=== PATIENT | female | born 1960 | race Caucasian/White ===

== ENCOUNTER 2021-10-04 11:48 | Inpatient (IN) ==
[2021-10-04] MEDS ORDERED: MoRPHine SULFATE 4 MG/ML 1 ML CARP\\VIAL IV STA ×2 (12:30→14:42)
[2021-10-04] MEDS ORDERED: SODIUM CHLORIDE 0.9% 1000ML 1,000 ML IV SCH (12:30)
[2021-10-04] MEDS ORDERED: ONDANSETRON INJ 2 MG/ML 2 ML VIAL IV STA (12:30)
--- NOTE | 2021-10-04 12:33 | Emergency Department Note ---
Impression & Plan Abscess of wrist Admission ED Provider Note HPI: The patient is a 61-year-old female with history of lupus, discitis, presents the emergency department with a chief complaint of right hand swelling and pain has been ongoing for the past 5 days. Patient states that she is not had any recent injuries, denies any recent bites, states that over the weekend she began developing some swelling and erythema on the dorsal aspect of her right hand. She was placed on prednisone at an outpatient urgent care facility, on Friday she saw her PCP and was placed on Keflex. Swelling and pain has continued to worsen over the past several days, patient has limited range of motion of the digits of her right hand on arrival and significant swelling on the dorsal aspect of the right hand with overlying erythema extending up to the elbow of the right forearm. ROS: -MSK: Right hand abscess swelling/pain *10 point review systems was conducted and is otherwise negative unless stated above *Outpatient medications and allergy history reviewed PE: General: Alert, NAD HEENT: Normocephalic, atraumatic Eyes: Extraocular eye movement is intact, no scleral erythema Pulmonary: Clear to auscultation bilaterally, no wheezing Cardio: Regular rate and rhythm GI: Abdomen is soft, nontender : No suprapubic tenderness MSK: There is edema, erythema, and swelling to the dorsal aspect of the right hand extending up the right forearm, there is no purulent drainage, there is li mited range of motion of the digits of the right hand in flexion and extension secondary to pain/swelling Skin: Skin changes to the right hand as above Neuro: Alert, no focal deficits Psychiatric: Cooperative equipment monitor phototypesetting: - An order was placed for continuous cardiac monitoring - Patient was noted to be in sinus rhythm with rate of 70 EKG: Rate: 72 Rhythm: Normal sinus rhythm Intervals: Within normal limits ST changes: No ST elevation Time: 1343 Medical Decision Making: Patient presented to the emergency department with some increasing swelling and pain in the dorsal aspect of her right hand, this does appear to be fairly significant on exam, patient does not maintain flexion or extension much with the digits of her right hand, she states this has been worsening despite being on Keflex over the past several days. She denies any IV drug use, she is immunocompromised and is her currently on hydroxychloroquine for lupus. Shortly after arrival patient was placed on compliance monitor, IV was established, lab work obtained, patient has a significant leukocytosis of approximately 26,000, blood cultures were drawn in the ED, CT imaging of the right upper extremity does confirm evidence of cellulitic changes as well as loculated fluid collection on the dorsal aspect of the right hand and wrist consistent with abscess. I discussed these findings with the on-call midlevel provider for the orthopedic service, Eladio, they are in agreement for consultation for operative intervention Patient will be admitted to the medicine service given her ongoing medical issues and history of lupus. Patient was started on broad-spectrum antibiotics with vancomycin and Zosyn. She was given multiple doses of IV morphine for pain. On my reassessment the patient has had some improvement in her pain with IV morphine, she is in agreement for admission, case was discussed with the hospitalist service for [facility] provider group and the patient was admitted in stable condition. Diagnosis: 1. Right hand abscess/cellulitis 2. Right upper extremity pain, acute 3. History of lupus, immunocompromised status 4. Leukocytosis 5. Elevated ESR Disposition: Admission Pancho Rinaldi DO Emergency Medicine Past Med/Surg History Medical History (Updated 10/04/21 @ 16:21 by Leonila Puri PA-C) Breast cancer HTN (hypertension) Lupus Social History Smoking Status: Never smoker Second Hand Exposure: No; Hx Alcohol Use: Yes Alcohol type: beer and wine Hx Substance Use: No Preferred Language: Irish Communication Ability: Effective Visual Impairment: No Limitations Financial Service Representative Required: No Beliefs That Will Affect Care: None marital status: Current Living Situation: Family Feels Safe at Home: Yes Assistive Devices: Walker Allergies Allergies Allergy/AdvReac Type Severity Reaction Status Date / Time No Known Allergies Allergy Unknown Verified 10/04/21 14:48 Home Meds Home Medications Medication Instructions Recorded Confirmed Lactobacillus acidophilus 1 cap PO QAM 07/30/18 10/04/21 (Acidophilus) ascorbic acid (vitamin C) 1,000 mg 3,000 mg PO QAM 07/30/18 10/04/21 tablet,extended release (Vitamin C ER) aspirin 81 mg tablet,delayed 81 mg PO QAM 07/30/18 10/04/21 release (Aspirin Low Dose) betamethasone, augmented 0.05 % 1 applic TOPICAL BID PRN 07/30/18 10/04/21 topical gel calcium carbonate 600 mg-vitamin 2 tab PO QAM 07/30/18 10/04/21 D3 20 mcg (800 unit) chewable tablet (Caltrate 600 plus D) cholecalciferol (vitamin D3) 25 2,000 unit PO QAM 07/30/18 10/04/21 mcg (1,000 unit) capsule (Vitamin D3) echinacea 380 mg capsule 2 cap PO QAM 07/30/18 10/04/21 flaxseed oil 1,000 mg capsule 1,000 mg PO BID 07/30/18 10/04/21 hydroxychloroquine 200 mg tablet 200 mg PO BID 07/30/18 10/04/21 montelukast 10 mg tablet 10 mg PO HS 07/30/18 10/04/21 multivitamin 1 tab PO QAM 07/30/18 10/04/21 omega 3-mfw-eof-fish oil 1,000 mg 2 cap PO QAM 07/30/18 10/04/21 (120 mg-180 mg) capsule (Fish Oil) pimecrolimus 1 % topical cream 1 applic TOPICAL DIRECTED 07/30/18 10/04/21 allopurinol 100 mg tablet 100 mg PO QAM 10/04/21 10/04/21 amlodipine 5 mg tablet 5 mg PO QAM 10/04/21 10/04/21 cephalexin 500 mg capsule 500 mg PO TID 10/04/21 10/04/21 escitalopram oxalate 20 mg tablet 20 mg PO HS 10/04/21 10/04/21 famotidine 20 mg tablet 20 mg PO DAILYBB 10/04/21 10/04/21 hydrocodone 5 mg-acetaminophen 325 1 tab PO Q4H PRN 10/04/21 10/04/21 mg tablet loratadine 10 mg tablet 10 mg PO QAM 10/04/21 10/04/21 montelukast 10 mg tablet 40 mg PO HS 10/04/21 10/04/21 prednisone 10 mg tablet 10 mg PO .TAPER DOSE 10/04/21 10/04/21 prednisone 10 mg tablet 10 mg PO .TAPER DOSE 10/04/21 10/04/21 vitamin B complex 1 tab PO QAM 10/04/21 10/04/21 Results & Data (ED) Vital Signs Vital Signs - 24 hr 10/04/21 11:52 10/04/21 13:29 10/04/21 14:30 Temperature 37.3 C Temperature Source Oral Pulse Rate 73 Pulse Rate [Apical] 74 Pulse Rhythm Regular Pulse Strength Normal Respiratory Rate 20 18 Respiratory Effort / Characteristics Non-Labored Spontaneous Respiratory Depth Normal Normal Respiratory Pattern Regular Blood Pressure 165/77 H Blood Pressure [Right Calf] 196/72 H Blood Pressure Mean 106 Blood Pressure Mean [Right Calf] 113 Blood Pressure Position Sitting Pulse Oximetry 98 94 Oxygen Delivery Method Room Air Room Air Room Air Sepsis Recent Fever Within 48 Hours No Sepsis New/Unexplained Change in Mental Status No Sepsis Action Taken by Nursing No Action Required Laboratory Data Result diagrams: 10/04/21 12:58 10/04/21 12:58 Lab Results 10/04/21 10/04/21 10/04/21 Range/Units 12:58 12:58 12:58 WBC 24.88 H (4.8-10.8) K/uL RBC 4.29 (4.2-5.4) M/uL Hgb 13.3 (12.0-16.0) g/dL Hct 37.7 (37-47) % MCV 87.9 (80-100) fL MCH 31.0 (25-34) pg MCHC 35.3 (32-36) g/dL RDW Std Deviation 48.8 H (36.4-46.3) fL RDW Coeff of Hipolito 15.2 H (11.5-14.5) % Plt Count 355 (130-400) K/uL MPV 9.8 (7.4-10.4) fL Neutrophils % (Manual) 69.6 % Lymphocytes % (Manual) 19.1 % Monocytes % (Manual) 8.7 % Metamyelocytes % (Man) 0.9 % Myelocytes % (Man) 1.7 % Neutrophils # (Manual) 17.32 H (1.4-6.5) K/uL Total Absolute Neuts 17.32 H (1.4-6.5) K/uL Lymphocytes # (Manual) 4.75 H (1.2-3.4) K/uL Total Abs Lymphocytes 4.75 H (1.2-3.4) K/uL Monocytes # (Manual) 2.16 H (0.11-0.59) K/uL Metamyelocytes # (Man) 0.22 H (0-0) K/uL Myelocytes # (Manual) 0.42 H (0-0) K/uL ESR (0-30) mm/hr PT 10.2 (9.0-12.0) Seconds INR 1.0 (0.9-1.1) APTT 27.0 (21.0-31.0) Seconds PTT Ratio 1.0 Sodium 139 (136-145) mmol/L Potassium 3.4 L (3.5-5.1) mmol/L Chloride 102 (98-107) mmol/L Carbon Dioxide 28 (21-32) mmol/L Anion Gap 9 (3-11) BUN 17 (6-23) mg/dl Creatinine 0.78 (0.6-1.2) mg/dl Est Cr Clr Drug Dosing 78.5 ml/min Est GFR ( Amer) 94.4 ml/min Est GFR (Non-Af Amer) 81.5 ml/min BUN/Creatinine Ratio 21.8 H (10-20) Glucose 143 H (70-99(Fasting)) mg/dl Lactate (0.4-2.0) mmol/L Calcium 9.6 (8.5-10.1) mg/dl Magnesium 2.1 (1.7-2.4) mg/dl Total Bilirubin 0.4 (0.2-1.0) mg/dl AST 36 (13-39) U/L ALT 55 H (7-52) U/L Alkaline Phosphatase 101 (34-104) U/L C-Reactive Protein 15.89 H (0-0.5) mg/dl Total Protein 7.6 (6.0-8.3) gm/dl Albumin 3.7 (3.4-5.0) gm/dl Globulin 3.9 (2.5-4.0) gm/dl Albumin/Globulin Ratio 0.9 (0.9-2) Procalcitonin (0-0.5) ng/ml Urine Color Urine Appearance (Clear) Urine pH (4.5-7.5) Ur Specific Garland (1.000-1.030) Urine Protein (Negative) Urine Glucose (UA) (Negative) Urine Ketones (Negative) Urine Blood (Negative) Urine Nitrite (Negative) Urine Bilirubin (Negative) Urine Urobilinogen (Negative) Ur Leukocyte Esterase (Negative) Urine WBC (Auto) (0-5) /hpf Urine RBC (Auto) (0-4) /hpf U Hyaline Cast (Auto) (0-5) /lpf U Epithel Cells (Auto) (0-5) /lpf Urine Bacteria (Auto) (Negative) SARS-CoV-2, RNA, NAAT (NEGATIVE) 10/04/21 10/04/21 10/04/21 Range/Units 12:58 12:58 12:58 WBC (4.8-10.8) K/uL RBC (4.2-5.4) M/uL Hgb (12.0-16.0) g/dL Hct (37-47) % MCV (80-100) fL MCH (25-34) pg MCHC (32-36) g/dL RDW Std Deviation (36.4-46.3) fL RDW Coeff of Hipolito (11.5-14.5) % Plt Count (130-400) K/uL MPV (7.4-10.4) fL Neutrophils % (Manual) % Lymphocytes % (Manual) % Monocytes % (Manual) % Metamyelocytes % (Man) % Myelocytes % (Man) % Neutrophils # (Manual) (1.4-6.5) K/uL Total Absolute Neuts (1.4-6.5) K/uL Lymphocytes # (Manual) (1.2-3.4) K/uL Total Abs Lymphocytes (1.2-3.4) K/uL Monocytes # (Manual) (0.11-0.59) K/uL Metamyelocytes # (Man) (0-0) K/uL Myelocytes # (Manual) (0-0) K/uL ESR 111 H (0-30) mm/hr PT (9.0-12.0) Seconds INR (0.9-1.1) APTT (21.0-31.0) Seconds PTT Ratio Sodium (136-145) mmol/L Potassium (3.5-5.1) mmol/L Chloride (98-107) mmol/L Carbon Dioxide (21-32) mmol/L Anion Gap (3-11) BUN (6-23) mg/dl Creatinine (0.6-1.2) mg/dl Est Cr Clr Drug Dosing ml/min Est GFR ( Amer) ml/min Est GFR (Non-Af Amer) ml/min BUN/Creatinine Ratio (10-20) Glucose (70-99(Fasting)) mg/dl Lactate 1.7 (0.4-2.0) mmol/L Calcium (8.5-10.1) mg/dl Magnesium (1.7-2.4) mg/dl Total Bilirubin (0.2-1.0) mg/dl AST (13-39) U/L ALT (7-52) U/L Alkaline Phosphatase (34-104) U/L C-Reactive Protein (0-0.5) mg/dl Total Protein (6.0-8.3) gm/dl Albumin (3.4-5.0) gm/dl Globulin (2.5-4.0) gm/dl Albumin/Globulin Ratio (0.9-2) Procalcitonin 0.87 H (0-0.5) ng/ml Urine Color Urine Appearance (Clear) Urine pH (4.5-7.5) Ur Specific Gar[place] (1.000-1.030) Urine Protein (Negative) Urine Glucose (UA) (Negative) Urine Ketones (Negative) Urine Blood (Negative) Urine Nitrite (Negative) Urine Bilirubin (Negative) Urine Urobilinogen (Negative) Ur Leukocyte Esterase (Negative) Urine WBC (Auto) (0-5) /hpf Urine RBC (Auto) (0-4) /hpf U Hyaline Cast (Auto) (0-5) /lpf U Epithel Cells (Auto) (0-5) /lpf Urine Bacteria (Auto) (Negative) SARS-CoV-2, RNA, NAAT (NEGATIVE) 10/04/21 10/04/21 Range/Units 15:33 15:33 WBC (4.8-10.8) K/uL RBC (4.2-5.4) M/uL Hgb (12.0-16.0) g/dL Hct (37-47) % MCV (80-100) fL MCH (25-34) pg MCHC (32-36) g/dL RDW Std Deviation (36.4-46.3) fL RDW Coeff of Hipolito (11.5-14.5) % Plt Count (130-400) K/uL MPV (7.4-10.4) fL Neutrophils % (Manual) % Lymphocytes % (Manual) % Monocytes % (Manual) % Metamyelocytes % (Man) % Myelocytes % (Man) % Neutrophils # (Manual) (1.4-6.5) K/uL Total Absolute Neuts (1.4-6.5) K/uL Lymphocytes # (Manual) (1.2-3.4) K/uL Total Abs Lymphocytes (1.2-3.4) K/uL Monocytes # (Manual) (0.11-0.59) K/uL Metamyelocytes # (Man) (0-0) K/uL Myelocytes # (Manual) (0-0) K/uL ESR (0-30) mm/hr PT (9.0-12.0) Seconds INR (0.9-1.1) APTT (21.0-31.0) Seconds PTT Ratio Sodium (136-145) mmol/L Potassium (3.5-5.1) mmol/L Chloride (98-107) mmol/L Carbon Dioxide (21-32) mmol/L Anion Gap (3-11) BUN (6-23) mg/dl Creatinine (0.6-1.2) mg/dl Est Cr Clr Drug Dosing ml/min Est GFR ( Amer) ml/min Est GFR (Non-Af Amer) ml/min BUN/Creatinine Ratio (10-20) Glucose (70-99(Fasting)) mg/dl Lactate (0.4-2.0) mmol/L Calcium (8.5-10.1) mg/dl Magnesium (1.7-2.4) mg/dl Total Bilirubin (0.2-1.0) mg/dl AST (13-39) U/L ALT (7-52) U/L Alkaline Phosphatase (34-104) U/L C-Reactive Protein (0-0.5) mg/dl Total Protein (6.0-8.3) gm/dl Albumin (3.4-5.0) gm/dl Globulin (2.5-4.0) gm/dl Albumin/Globulin Ratio (0.9-2) Procalcitonin (0-0.5) ng/ml Urine Color Yellow Urine Appearance Clear (Clear) Urine pH 6.0 (4.5-7.5) Ur Specific Garland 1.028 (1.000-1.030) Urine Protein Negative (Negative) Urine Glucose (UA) Negative (Negative) Urine Ketones Negative (Negative) Urine Blood 1+ H (Negative) Urine Nitrite Negative (Negative) Urine Bilirubin Negative (Negative) Urine Urobilinogen Negative (Negative) Ur Leukocyte Esterase 1+ H (Negative) Urine WBC (Auto) 5-10 H (0-5) /hpf Urine RBC (Auto) 5-10 H (0-4) /hpf U Hyaline Cast (Auto) 0 (0-5) /lpf U Epithel Cells (Auto) 5-10 H (0-5) /lpf Urine Bacteria (Auto) Negative (Negative) SARS-CoV-2, RNA, NAAT NEGATIVE (NEGATIVE) Administered Medications Potassium Chloride (K Tyrell / Wtr) 10 meq in 100 mls @ 100 mls/hr IV Q1H STA; Protocol Stop: 10/04/21 17:10 Last Admin: 10/04/21 16:15 Dose: 100 mls/hr Documented by: [id number] Discontinued Medications Sodium Chloride (Nss 1000ml) 1,000 mls @ 999 mls/hr IV .Q1H1M MARLEN Stop: 10/04/21 13:30 Last Infusion: 10/04/21 14:53 Dose: 0 mls/hr Documented by: [id number] Admin: 10/04/21 13:03 Dose: 999 mls/hr Documented by: [id number] Vancomycin HCl 1,750 mg/ (Sodium Chloride) 535 mls @ 200 mls/hr IV NOW ONE Stop: 10/04/21 15:52 Last Admin: 10/04/21 13:47 Dose: 200 mls/hr Documented by: [id number] Piperacillin Sod/Tazobactam Sod (Zosyn) 4.5 gm in 120 mls @ 240 mls/hr IV NOW ONE Stop: 10/04/21 13:41 Last Infusion: 10/04/21 14:53 Dose: 0 mls/hr Documented by: [id number] Admin: 10/04/21 13:47 Dose: 240 mls/hr Documented by: [id number] Ioversol (Optiray 320 100ml) 94 ml IV ONCE ONE Stop: 10/04/21 14:22 Last Admin: 10/04/21 14:21 Dose: 94 ml Documented by: [id number] Morphine Sulfate (Morphine Sulfate 4 Mg/Ml 1 Ml Carp\Vial) 4 mg IV NOW STA Stop: 10/04/21 12:31 Last Admin: 10/04/21 13:05 Dose: 4 mg Documented by: [id number] Morphine Sulfate (Morphine Sulfate 4 Mg/Ml 1 Ml Carp\Vial) 4 mg IV NOW STA Stop: 10/04/21 14:43 Last Admin: 10/04/21 14:52 Dose: 4 mg Documented by: [id number] Ondansetron HCl (Ondansetron Inj 2 Mg/Ml 2 Ml Vial) 4 mg IV NOW STA Stop: 10/04/21 12:31 Last Admin: 10/04/21 13:04 Dose: 4 mg Documented by: [id number] Imaging Data Radiologist's Impression: Chest X-Ray 10/04/21 12:29 XR chest 1V portable HISTORY: 61 years-old Female SEPSIS acute sepsis COMPARISON: Chest radiograph 07/30/2018 TECHNIQUE: Portable AP view of the chest FINDINGS: Cardiac silhouette is enlarged. Pulmonary vascular congestion with mild interstitial coarsening. No pneumothorax, pleural effusion or lobar airspace consolidation. Degenerative changes of the shoulders and spine. Minimal rotator cuff calcific tendinosis of the right shoulder. Mild mid thoracic dextroscoliosis. IMPRESSION: Cardiomegaly with suggestion of pulmonary vascular congestion. ACT 112: Negative or not required by law. The above report was generated using voice recognition software. It may contain grammatical, syntax or spelling errors. Electronically signed by: Khris Knowles M.D. 10/04/2021 12:[address] 10/04/21 12:29 CT SCAN OF THE RIGHT FOREARM WITHOUT IV CONTRAST; CT SCAN OF THE RIGHT HAND WITH IV CONTRAST CLINICAL HISTORY: Arm and hand pain. Clinical concern for abscess. COMPARISON STUDY: No priors. TECHNIQUE: CT scan of the right forearm and CT scan of the right hand are performed following the IV administration of 94 cc of Optiray 320. Images for both examinations are reviewed in the axial, sagittal, and coronal planes. A dose lowering technique was utilized adhering to the principles of ALARA. The examinations are degraded by patient positioning. Interpretation is suboptimal without plain film correlate. CT DOSE: 415.84 mGycm FINDINGS: The skeletal structures are osteopenic. There is no evidence of fracture identified in the right forearm, wrist, or hand. No bony erosion or periostitis is identified. Significant soft tissue edema is identified throughout the forearm, greatest in the ulnar sided soft tissues. No organized fluid collection is seen throughout the forearm. Extensive soft tissue edema and subcutaneous fluid is seen throughout the hand, greatest dorsally. There is a multiloculated and peripherally enhancing fluid collection identified along the dorsal aspect of the wrist and hand. A small fluid collection at the level of the proximal carpal row seen on axial images #164 and #181 measures approximately 2.5 x 3 x 1 cm. No soft tissue gas identified. The regional vessels are grossly patent. IMPRESSION: 1. No acute bony abnormality is identified involving the right forearm, wrist, or hand. 2. There is evidence of cellulitis of the ulnar sided soft tissues of the forearm. 3. More severe cellulitis is seen throughout the hand, greatest dorsally with si gnificant soft tissue edema and fluid. 4. There is a multiloculated and peripherally enhancing fluid collection along the dorsal aspect of the wrist and hand as detailed above. This likely represents abscess as clinically suspected. 5. No soft tissue gas is identified. ACT 112: Negative or not required by law. Dictated: 10/04/2021 2:32 PM Transcribed: 10/04/2021 2:53 PM Denise [id number] [email or web address] Electronically signed by: Umesh Kee M.D. 10/04/2021 3:[address] 10/04/21 12:29 CT SCAN OF THE RIGHT FOREARM WITHOUT IV CONTRAST; CT SCAN OF THE RIGHT HAND WITH IV CONTRAST CLINICAL HISTORY: Arm and hand pain. Clinical concern for abscess. COMPARISON STUDY: No priors. TECHNIQUE: CT scan of the right forearm and CT scan of the right hand are performed following the IV administration of 94 cc of Optiray 320. Images for both examinations are reviewed in the axial, sagittal, and coronal planes. A dose lowering technique was utilized adhering to the principles of ALARA. The examinations are degraded by patient positioning. Interpretation is suboptimal without plain film correlate. CT DOSE: 415.84 mGycm FINDINGS: The skeletal structures are osteopenic. There is no evidence of fracture identified in the right forearm, wrist, or hand. No bony erosion or periostitis is identified. Significant soft tissue edema is identified throughout the forearm, greatest in the ulnar sided soft tissues. No organized fluid collection is seen throughout the forearm. Extensive soft tissue edema and subcutaneous fluid is seen throughout the hand, greatest dorsally. There is a multiloculated and peripherally enhancing fluid collection identified along the dorsal aspect of the wrist and hand. A small fluid collection at the level of the proximal carpal row seen on axial images #164 and #181 measures approximately 2.5 x 3 x 1 cm. No soft tissue gas identified. The regional vessels are grossly patent. IMPRESSION: 1. No acute bony abnormality is identified involving the right forearm, wrist, or hand. 2. There is evidence of cellulitis of the ulnar sided soft tissues of the forearm. 3. More severe cellulitis is seen throughout the hand, greatest dorsally with significant soft tissue edema and fluid. 4. There is a multiloculated and peripherally enhancing fluid collection along the dorsal aspect of the wrist and hand as detailed above. This likely represents abscess as clinically suspected. 5. No soft tissue gas is identified. ACT 112: Negative or not required by law. Dictated: 10/04/2021 2:32 PM Transcribed: 10/04/2021 2:53 PM Denise [id number] [email or web address] Electronically signed by: Umesh Kee M.D. 10/04/2021 3:05 PM Discharge Plan Visit Data Chief Complaint: Swelling/Edema to Extremity Stated Complaint: SWELLING IN RIGHT HAND AND ARM ED Provider: Pancho Rinaldi Discharge Problem: Abscess of wrist Forms Stand Alone Forms: [facility] Prescriptions Prescriptions: No Action multivitamin Tablet 1 tab PO QAM RF: 0 echinacea 380 mg Capsule 2 cap PO QAM RF: 0 Vitamin C 1,000 mg Tablet Extended Release 3,000 mg PO QAM RF: 0 pimecrolimus 1 % cream 1 applic topical DIRECTED RF: 0 aspirin [Aspirin Low Dose] 81 mg Tablet,Delayed Release (Dr/Ec) 81 mg PO QAM RF: 0 flaxseed oil 1,000 mg Capsule 1,000 mg PO BID RF: 0 betamethasone, augmented 0.05 % gel 1 applic topical BID PRN (Reason: lupus) RF: 0 montelukast 10 mg tablet 10 mg PO HS RF: 0 hydroxychloroquine 200 mg tablet 200 mg PO BID RF: 0 Acidophilus Capsule 1 cap PO QAM RF: 0 cholecalciferol (vitamin D3) [Vitamin D3] 1,000 unit Capsule 2,000 unit PO QAM RF: 0 omega 6-wkf-fah-fish oil [Fish Oil] 1,000 mg (120 mg-180 mg) Capsule 2 cap PO QAM RF: 0 Caltrate 600 plus D 600 mg (1,500 mg)-800 unit Tablet,Chewable 2 tab PO QAM RF: 0 prednisone 10 mg tablet 10 mg PO .TAPER DOSE RF: 0 prednisone 10 mg tablet 10 mg PO .TAPER DOSE RF: 0 hydrocodone-acetaminophen 5-325 mg tablet 1 tab PO Q4H PRN (Reason: Pain) RF: 0 amlodipine 5 mg tablet 5 mg PO QAM RF: 0 allopurinol 100 mg tablet 100 mg PO QAM RF: 0 famotidine 20 mg tablet 20 mg PO DAILYBB RF: 0 cephalexin 500 mg capsule 500 mg PO TID RF: 0 vitamin B complex Tablet 1 tab PO QAM RF: 0 montelukast 10 mg tablet 40 mg PO HS RF: 0 loratadine 10 mg Tablet 10 mg PO QAM RF: 0 escitalopram oxalate 20 mg tablet 20 mg PO HS RF: 0 Referrals Referrals: Kelin Stark MD [Non-Staff] -
--- NOTE | 2021-10-04 12:49 | XRay Report ---
XR chest 1V portable HISTORY: 61 years-old Female SEPSIS acute sepsis COMPARISON: Chest radiograph 07/30/2018 TECHNIQUE: Portable AP view of the chest FINDINGS: Cardiac silhouette is enlarged. Pulmonary vascular congestion with mild interstitial coarsening. No p neumothorax, pleural effusion or lobar airspace consolidation. Degenerative changes of the shoulders and spine. Minimal rotator cuff calcific tendinosis of the right shoulder. Mild mid thoracic dextrosc oliosis. IMPRESSION: Cardiomegaly with suggestion of pulmonary vascular congestion. ACT 112: Negative or not required by law. The above report was generated using voice recognition software. It may contain grammatical, syntax o r spelling errors. Electronically signed by: Khris Knowles M.D. 10/04/2021 12:48 PM
[2021-10-04 13:11] LABS: Hematocrit (blood only) 37.7 % (37-47); Hemoglobin 13.3 g/dL (12.0-16.0); Mean Corpuscular Hgb Conc 35.3 g/dL (32-36); Mean Corpuscular Volume 87.9 fL (80-100); Mean Platelet Volume 9.8 fL (7.4-10.4); Platelet Count 355 K/uL (130-400); RDW Coefficient of Variation 15.2 % (11.5-14.5); RDW Standard Deviation 48.8 fL (36.4-46.3); Red Blood Count 4.29 M/uL (4.2-5.4); White Blood Count 24.88 K/uL (4.8-10.8)
[2021-10-04] MEDS ORDERED: VANCOMYCIN CONSULT ACTIVE PRN ×2 (13:12→17:14)
[2021-10-04] MEDS ORDERED: VANCOMYCIN HCL 1,750 MG in SODIUM CHLORIDE 0.9% 500 ML IV ONE (13:12)
[2021-10-04] MEDS ORDERED: PIPERACILL/TAZOBAC CONSULT ACTIVE PRN ×2 (13:12→17:14)
[2021-10-04] MEDS ORDERED: PIPERACILLIN/TAZOBACTAM 4.5 GM/120 ML BAG IV ONE (13:12)
[2021-10-04 13:24] LABS: Prothrombin Time 10.2 Seconds (9.0-12.0)
[2021-10-04 13:27] LABS: ALC (manual) 4.75 K/uL (1.2-3.4); ANC (manual) 17.32 K/uL (1.4-6.5); Lymphocytes # (manual) 4.75 K/uL (1.2-3.4); Lymphocytes % (manual) 19.1 %; Metamyelocytes # (manual) 0.22 K/uL (0-0); Metamyelocytes % (manual) 0.9 %; Monocytes # (manual) 2.16 K/uL (0.11-0.59); Monocytes % (manual) 8.7 %; Myelocytes # (manual) 0.42 K/uL (0-0); Myelocytes % (manual) 1.7 %; Neutrophils # (manual) 17.32 K/uL (1.4-6.5); Neutrophils % (manual) 69.6 %
[2021-10-04 13:41] LABS: Albumin Globulin Ratio 0.9 (0.9-2); Albumin Level 3.7 gm/dl (3.4-5.0); BUN Creatinine Ratio 21.8 (10-20); Bilirubin,Total 0.4 mg/dl (0.2-1.0); C Reactive Protein 15.89 mg/dl (0-0.5); Calcium 9.6 mg/dl (8.5-10.1); Creatinine Clr Calc Pharmacy 78.5 ml/min; Est GFR (African American) 94.4 ml/min; Est GFR (Non-African American) 81.5 ml/min; Globulin 3.9 gm/dl (2.5-4.0); Magnesium 2.1 mg/dl (1.7-2.4); Potassium 3.4 mmol/L (3.5-5.1); Total Protein 7.6 gm/dl (6.0-8.3)
[2021-10-04] MEDS ORDERED: OPTIRAY 320 100ml IV ONE (14:21)
--- NOTE | 2021-10-04 15:07 | CT Scan Report ---
CT SCAN OF THE RIGHT FOREARM WITHOUT IV CONTRAST; CT SCAN OF THE RIGHT HAND WITH IV CONTRAST CLINICAL HISTORY: Arm and hand pain. Clinical concern for abscess. COMPARISON STUDY: No priors. TECHNIQUE: CT scan of the right forearm and CT scan of the right hand are performed following the IV administration of 94 cc of Optiray 320. Images for both examinations are reviewed in the axial, sagit gabriel, and coronal planes. A dose lowering technique was utilized adhering to the principles of ALARA. The examinations are degraded by patient positioning. Interpretation is suboptimal without plain film correlate. CT DOSE: 415.84 mGycm FINDINGS: The skeletal structures are osteopenic. There is no evidence of fracture identified in the right forearm, wrist, or hand. No bony erosion or periostitis is identified. Significant soft tissue edema is identified throughout the forearm, greatest in the ulnar sided soft tissues. No organized fl uid collection is seen throughout the forearm. Extensive soft tissue edema and subcutaneous fluid is seen throughout the hand, greatest dorsally. There is a multiloculated and peripherally enhancing flu id collection identified along the dorsal aspect of the wrist and hand. A small fluid collection at t he level of the proximal carpal row seen on axial images #164 and #181 measures approximately 2.5 x 3 x 1 cm. No soft tissue gas identified. The regional vessels are grossly patent. IMPRESSION: 1. No acute bony abnormality is identified involving the right forearm, wrist, or hand. 2. There is evidence of cellulitis of the ulnar sided soft tissues of the forearm. 3. More severe cellulitis is seen throughout the hand, greatest dorsally with significant soft tissue edema and fluid. 4. There is a multiloculated and peripherally enhancing fluid collection along the dorsal aspect of t he wrist and hand as detailed above. This likely represents abscess as clinically suspected. 5. No soft tissue gas is identified. ACT 112: Negative or not required by law. Dictated: 10/04/2021 2:32 PM Transcribed: 10/04/2021 2:53 PM Denise [id number] [email or web address]_Dana Electronically signed by: Umesh Kee M.D. 10/04/2021 3:05 PM
--- NOTE | 2021-10-04 15:35 | History & Physical Report ---
Date of Service October 04, 2021 Assessment & Plan (1) Abscess of wrist: Plan: -With WBC 24, elevated procalcitonin, ESR, CRP. Suspect elevated white blood cell count might be combination of infection as well as steroid use. -Failed treatment as outpatient with prednisone and Keflex, d/c these. -Vanco and Zosyn for now. Blood cultures sent, pending. -Orthopedic consulted for evaluation of patient, recommending pain control, elevation and ice, reassess tomorrow patient's response to antibiotics. Appreciate their recommendations. -Heart healthy diet, n.p.o. at midnight. -IVF, prn pain medications. (2) Lupus: Plan: -Stable. -Continue hydroxychloroquine. -D/C pimecrolimus and betamethasone cream for now. (3) HTN (hypertension): Plan: -Hypertensive today in ED, 160/76. Takes amlodipine 5 mg daily, states pressure is typically well controlled. Suspect elevated BP due to pain, infection. -Continue amlodipine, continue to monitor pressure, manage pain. (4) Hyperuricemia: Plan: -On outpatient labs, patient is currently on allopurinol for prevention of gout attacks. -Do not suspect this is the cause of patient's wrist pain. -Continue allopurinol 100 mg daily. Admission and Anticipated Discharge Date Admission Date: -Obs med-sugr -SCDs, Lovenox for DVT ppx -Full Code. History of Present Illness Chief Complaint: wrist abscess Primary Care Provider: NO PCP Patient is a 61-year-old female with PMH of hypertension, lupus, GERD, and depression who presents today with worsening wrist swelling since Friday, 09/30. Patient states Friday afternoon, she noticed her wrist was becoming red and appeared swollen. She went to an outpatient urgent care center who told her this may be gout, prescribed her prednisone 50 mg daily. Despite prednisone, as well as aspirin for pain management, the swelling increased and the redness started to extend up to her elbow. She saw her PCP on Friday, who tapered the prednisone and also put her on a 3-day course of Keflex for presumed cellulitis. Again, despite this it has progressed. She is unsure how this started, denies any new recent medications, no recent injuries, no animal bites, no puncture wounds. States she does have lupus, commonly gets rashes on her arms from her lupus as well as frequently having her hands in water. She usually puts betamethasone cream on it, which she did this time without alleviation. Due to swelling, she does have difficulty with range of motion at her right wrist and fingers, she is able to move her elbow in flexion extension with some pain. She has begun to develop some numbness and tingling in her first 2 fingers on the right hand. She is otherwise without complaints, denies fever/chills, myalgias, fatigue, chest pain, palpitations, shortness of breath, cough, rash or edema elsewhere. In ED, patient is hypertensive 165/77, otherwise vital signs stable and within normal limits. No fever. Labs remarkable for WBC 24.8, CRP 15.89, ESR 111, procalcitonin 0.7. K+ 3.4, glucose 143, UA with 1+ leuk estrase, patient WBCs, 5-10 RBCs. All other labs unremarkable. Hand/forearm CT showed severe cellulitis throughout the hand, greatest dorsally with significant soft tissue edema and fluid, cellulitis of the ulnar sided soft tissues of the forearm. There is a multiloculated and peripherally enhancing fluid collection along the dorsal aspect of the wrist and hand as detailed above. This likely represents abscess as clinically suspected. Allergies Allergy/AdvReac Type Severity Reaction Status Date / Time No Known Allergies Allergy Unknown Verified 10/04/21 14:48 Home Medications Medication Instructions Recorded Confirmed Type Lactobacillus acidophilus 1 cap PO QAM 07/30/18 10/04/21 History (Acidophilus) ascorbic acid (vitamin C) 1,000 mg 3,000 mg PO QAM 07/30/18 10/04/21 History tablet,extended release (Vitamin C ER) aspirin 81 mg tablet,delayed 81 mg PO QAM 07/30/18 10/04/21 History release (Aspirin Low Dose) betamethasone, augmented 0.05 % 1 applic TOPICAL BID PRN 07/30/18 10/04/21 History topical gel calcium carbonate 600 mg-vitamin 2 tab PO QAM 07/30/18 10/04/21 History D3 20 mcg (800 unit) chewable tablet (Caltrate 600 plus D) cholecalciferol (vitamin D3) 25 2,000 unit PO QAM 07/30/18 10/04/21 History mcg (1,000 unit) capsule (Vitamin D3) echinacea 380 mg capsule 2 cap PO QAM 07/30/18 10/04/21 History flaxseed oil 1,000 mg capsule 1,000 mg PO BID 07/30/18 10/04/21 History hydroxychloroquine 200 mg tablet 200 mg PO BID 07/30/18 10/04/21 History montelukast 10 mg tablet 10 mg PO HS 07/30/18 10/04/21 History multivitamin 1 tab PO QAM 07/30/18 10/04/21 History omega 8-ats-jes-fish oil 1,000 mg 2 cap PO QAM 07/30/18 10/04/21 History (120 mg-180 mg) capsule (Fish Oil) pimecrolimus 1 % topical cream 1 applic TOPICAL DIRECTED 07/30/18 10/04/21 History allopurinol 100 mg tablet 100 mg PO QAM 10/04/21 10/04/21 History amlodipine 5 mg tablet 5 mg PO QAM 10/04/21 10/04/21 History cephalexin 500 mg capsule 500 mg PO TID 10/04/21 10/04/21 History escitalopram oxalate 20 mg tablet 20 mg PO HS 10/04/21 10/04/21 History famotidine 20 mg tablet 20 mg PO DAILYBB 10/04/21 10/04/21 History hydrocodone 5 mg-acetaminophen 325 1 tab PO Q4H PRN 10/04/21 10/04/21 History mg tablet loratadine 10 mg tablet 10 mg PO QAM 10/04/21 10/04/21 History prednisone 10 mg tablet 10 mg PO .TAPER DOSE 10/04/21 10/04/21 History prednisone 10 mg tablet 10 mg PO .TAPER DOSE 10/04/21 10/04/21 History vitamin B complex 1 tab PO QAM 10/04/21 10/04/21 History Past Med/Surg History Medical History Breast cancer HTN (hypertension) Lupus Social History Smoking Status: Never smoker Second Hand Exposure: Yes; Do You Dip or Chew Tobacco: No; Tobacco Cessation Education Requested by Patient: No Hx Alcohol Use: Yes Alcohol type: beer and wine Hx Substance Use: No Preferred Language: Bulgarian Communication Ability: Effective Visual Impairment: No Limitations Behavioral Instructor Required: No Beliefs That Will Affect Care: None marital status: Current Living Situation: Spouse Other Information That Helps Us Care for You: No Feels Safe at Home: Yes Safety Concerns: Feels Safe At This Time Assistive Devices: None Assistive Devices Comment: upper partial denture Review of Systems Review of Systems: Constitutional: No fever, sweats or chills Eyes: No diplopia, no worsening or blurred vision ENT: normal hearing, no trouble swallowing Respiratory: No cough, sputum, dyspnea at rest or on exertion Cardiovascular: No chest pain, tightness or palpitations Abdomen: No pain, nausea, vomiting, diarrhea or constipation Musculoskeletal: right hand/forearm pain, swelling since Friday Neurologic: No weakness, numbness/tingling, or balance problems Psychiatric: No anxiety or depression Skin: right hand red, swollen, tender with movement, progressing sine Friday Physical Exam Physical Exam: General: awake, alert, no apparent distress Head: Normocephalic, atraumatic ENT: PERRL, EOMI, no pharyngeal exudate, mucous membranes moist Chest: Clear to auscultation, on room air, no adventitious breath sounds Cardiac: Regular rate and rhythm, 2/6 systolic murmur heard, no JVD, normal peripheral pulses, good capillary refill Abdominal: NABS x 4 quadrants, soft, nontender to palpation, no rebound, guarding or tenderness Extremities: right hand edematous and erythematous with limited movement of wrist and fingers due to edema, possibly a few blisters noted on the dorsal surface, without drainage; pulses intact, no numbness or pain with palpation; erythema extends up to elbow on ulnar side, some moderate pain with elbow flexion and extension; otherwise normal inspection, no peripheral edema or erythema, calfs nontender to palpation Psych: Normal mood and affect Neuro: AAO x 3, strength intact bilaterally and rated 5/5, no motor deficits, speech is clear, no peripheral sensory deficits Skin: right hand erythema that extends up to elbow on ulnar side; no other rashes, lesions, or skin changes noted elsewhere Results & Data Results & Data ([facility]) Vital Signs (Past 12 Hours) Vital Signs Temp Pulse Pulse Resp BP BP Pulse Ox 10/04/21 13:29 74 18 196/72 H 94 10/04/21 11:52 37.3 C 73 20 165/77 H 98 Laboratory Results Abnormal lab results 10/04/21 10/04/21 10/04/21 Range/Units 12:58 12:58 12:58 WBC 24.88 H (4.8-10.8) K/uL RDW Std Deviation 48.8 H (36.4-46.3) fL RDW Coeff of Hipolito 15.2 H (11.5-14.5) % Neutrophils # (Manual) 17.32 H (1.4-6.5) K/uL Total Absolute Neuts 17.32 H (1.4-6.5) K/uL Lymphocytes # (Manual) 4.75 H (1.2-3.4) K/uL Total Abs Lymphocytes 4.75 H (1.2-3.4) K/uL Monocytes # (Manual) 2.16 H (0.11-0.59) K/uL Metamyelocytes # (Man) 0.22 H (0-0) K/uL Myelocytes # (Manual) 0.42 H (0-0) K/uL ESR (0-30) mm/hr Potassium 3.4 L (3.5-5.1) mmol/L BUN/Creatinine Ratio 21.8 H (10-20) Glucose 143 H (70-99(Fasting)) mg/dl ALT 55 H (7-52) U/L C-Reactive Protein 15.89 H (0-0.5) mg/dl Procalcitonin 0.87 H (0-0.5) ng/ml Urine Blood (Negative) Ur Leukocyte Esterase (Negative) Urine WBC (Auto) (0-5) /hpf Urine RBC (Auto) (0-4) /hpf U Epithel Cells (Auto) (0-5) /lpf 10/04/21 10/04/21 Range/Units 12:58 15:33 WBC (4.8-10.8) K/uL RDW Std Deviation (36.4-46.3) fL RDW Coeff of Hipolito (11.5-14.5) % Neutrophils # (Manual) (1.4-6.5) K/uL Total Absolute Neuts (1.4-6.5) K/uL Lymphocytes # (Manual) (1.2-3.4) K/uL Total Abs Lymphocytes (1.2-3.4) K/uL Monocytes # (Manual) (0.11-0.59) K/uL Metamyelocytes # (Man) (0-0) K/uL Myelocytes # (Manual) (0-0) K/uL ESR 111 H (0-30) mm/hr Potassium (3.5-5.1) mmol/L BUN/Creatinine Ratio (10-20) Glucose (70-99(Fasting)) mg/dl ALT (7-52) U/L C-Reactive Protein (0-0.5) mg/dl Procalcitonin (0-0.5) ng/ml Urine Blood 1+ H (Negative) Ur Leukocyte Esterase 1+ H (Negative) Urine WBC (Auto) 5-10 H (0-5) /hpf Urine RBC (Auto) 5-10 H (0-4) /hpf U Epithel Cells (Auto) 5-10 H (0-5) /lpf Diagnostic Findings Chest X-Ray 10/04/21 12:29 XR chest 1V portable HISTORY: 61 years-old Female SEPSIS acute sepsis COMPARISON: Chest radiograph 07/30/2018 TECHNIQUE: Portable AP view of the chest FINDINGS: Cardiac silhouette is enlarged. Pulmonary vascular congestion with mild interstitial coarsening. No pneumothorax, pleural effusion or lobar airspace consolidation. Degenerative changes of the shoulders and spine. Minimal rotator cuff calcific tendinosis of the right shoulder. Mild mid thoracic dextroscoliosis. IMPRESSION: Cardiomegaly with suggestion of pulmonary vascular congestion. ACT 112: Negative or not required by law. The above report was generated using voice recognition software. It may contain grammatical, syntax or spelling errors. Electronically signed by: Khris Knowles M.D. 10/04/2021 12:[address] 10/04/21 12:29 CT SCAN OF THE RIGHT FOREARM WITHOUT IV CONTRAST; CT SCAN OF THE RIGHT HAND WITH IV CONTRAST CLINICAL HISTORY: Arm and hand pain. Clinical concern for abscess. COMPARISON STUDY: No priors. TECHNIQUE: CT scan of the right forearm and CT scan of the right hand are performed following the IV administration of 94 cc of Optiray 320. Images for both examinations are reviewed in the axial, sagittal, and coronal planes. A dose lowering technique was utilized adhering to the principles of ALARA. The examinations are degraded by patient positioning. Interpretation is suboptimal without plain film correlate. CT DOSE: 415.84 mGycm FINDINGS: The skeletal structures are osteopenic. There is no evidence of fracture identified in the right forearm, wrist, or hand. No bony erosion or periostitis is identified. Significant soft tissue edema is identified throughout the forearm, greatest in the ulnar sided soft tissues. No organized fluid collection is seen throughout the forearm. Extensive soft tissue edema and subcutaneous fluid is seen throughout the hand, greatest dorsally. There is a multiloculated and peripherally enhancing fluid collection identified along the dorsal aspect of the wrist and hand. A small fluid collection at the level of the proximal carpal row seen on axial images #164 and #181 measures approximately 2.5 x 3 x 1 cm. No soft tissue gas identified. The regional vessels are grossly patent. IMPRESSION: 1. No acute bony abnormality is identified involving the right forearm, wrist, or hand. 2. There is evidence of cellulitis of the ulnar sided soft tissues of the forearm. 3. More severe cellulitis is seen throughout the hand, greatest dorsally with significant soft tissue edema and fluid. 4. There is a multiloculated and peripherally enhancing fluid collection along the dorsal aspect of the wrist and hand as detailed above. This likely re presents abscess as clinically suspected. 5. No soft tissue gas is identified. ACT 112: Negative or not required by law. Dictated: 10/04/2021 2:32 PM Transcribed: 10/04/2021 2:53 PM [facility] [id number] [email or web address] Electronically signed by: Umesh Kee M.D. 10/04/2021 3:[address] 10/04/21 12:29 CT SCAN OF THE RIGHT FOREARM WITHOUT IV CONTRAST; CT SCAN OF THE RIGHT HAND WITH IV CONTRAST CLINICAL HISTORY: Arm and hand pain. Clinical concern for abscess. COMPARISON STUDY: No priors. TECHNIQUE: CT scan of the right forearm and CT scan of the right hand are performed following the IV administration of 94 cc of Optiray 320. Images for both examinations are reviewed in the axial, sagittal, and coronal planes. A dose lowering technique was utilized adhering to the principles of ALARA. The examinations are degraded by patient positioning. Interpretation is suboptimal without plain film correlate. CT DOSE: 415.84 mGycm FINDINGS: The skeletal structures are osteopenic. There is no evidence of fracture identified in the right forearm, wrist, or hand. No bony erosion or periostitis is identified. Significant soft tissue edema is identified throughout the forearm, greatest in the ulnar sided soft tissues. No organized fluid collection is seen throughout the forearm. Extensive soft tissue edema and subcutaneous fluid is seen throughout the hand, greatest dorsally. There is a multiloculated and peripherally enhancing fluid collection identified along the dorsal aspect of the wrist and hand. A small fluid collection at the level of t he proximal carpal row seen on axial images #164 and #181 measures approximately 2.5 x 3 x 1 cm. No soft tissue gas identified. The regional vessels are grossly patent. IMPRESSION: 1. No acute bony abnormality is identified involving the right forearm, wrist, or hand. 2. There is evidence of cellulitis of the ulnar sided soft tissues of the forearm. 3. More severe cellulitis is seen throughout the hand, greatest dorsally with significant soft tissue edema and fluid. 4. There is a multiloculated and peripherally enhancing fluid collection along the dorsal aspect of the wrist and hand as detailed above. This likely represents abscess as clinically suspected. 5. No soft tissue gas is identified. ACT 112: Negative or not required by law. Dictated: 10/04/2021 2:32 PM Transcribed: 10/04/2021 2:53 PM [facility] [id number] [email or web address] Electronically signed by: Umesh Kee M.D. 10/04/2021 3:05 PM ECG Additional Comments: Normal sinus rhythm Normal ECG No previous ECGs available Code Status & VTE Plan Code Status Full code. Supervising Physician Co-Signing Physician Notes I personally saw and examined the patient. I verified all cook points and agree with eLonila Puri PA-C with the following exceptions and/or additions: 61 year old female presents to the ER with erythema and swelling over dorsal and plantar aspects of left wrist. Abscess seen on CT. Initially treated as gout with prednisone. PCP started Keflex for cellulitis and tapered steroids on 10/01. Progressively getting worse since then. O/E numbness over median nerve distribution of left hand, limited movement of all fingers due to pain and swelling, tracking of cellulitis (centered over left wrist) to elbow (more extensive on dorsal surface). HS RRR, no murmurs, Chest CTAB. A/P Left wrist abscess and cellulitis - Agree with continuing Zosyn and vancomycin pending blood (+/- surgical) cultures. Consult orthopedics to see today due to numbness in median nerve distribution. NPO until seen by orthopedics. No prior history of her lupus causing inflammatory arthritis and no indication for ongoing prednisone. Agree with continuing her Plaquenil however. PG Care Time/CCT Total # of Minutes Spent Total Time Spent with Patient: Total time spent is greater than 50% in coordination of care (as documented) at patient's floor/unit and/or counseling patient: Coding Level of Care Code INT OBSERVATION CARE 70M LVL 3 Diagnoses Lupus M32.9 HTN (hypertension) I10 Abscess of wrist L02.419 Hyperuricemia E79.0
[2021-10-04 15:46] LABS: Appearance Urine Clear (Clear); Bacteria Urine Automated Negative (Negative); Bilirubin Urine Negative (Negative); Blood Urine 1+ (Negative); Cast Urine Automated 0 /lpf (0-5); Color Urine Yellow; Glucose Urine UA Negative (Negative); Ketones Urine Negative (Negative); Leukocyte Esterase Urine 1+ (Negative); Nitrite Urine Negative (Negative); Protein Urine Negative (Negative); Specific Gravity Urine 1.028 (1.000-1.030); Urobilinogen Urine Negative (Negative)
[2021-10-04] MEDS ORDERED: POTASSIUM CHLORIDE / WTR 10 MEQ/100 ML PLCT IV STA (16:11)
[2021-10-04] MEDS ORDERED: ONDANSETRON INJ 2 MG/ML 2 ML VIAL IV PRN (17:14)
[2021-10-04] MEDS ORDERED: BETAMETHASONE DIP AUG 0.05% OINT 15 GM TUBE TOP PRN (17:14)
[2021-10-04] MEDS ORDERED: POLYETHYLENE (MIRALAX) 17 GM PACK PO PRN (17:14)
[2021-10-04] MEDS: LACTATED RINGER'S 1,000 ML IV SCH (17:15)
[2021-10-04] MEDS: ACETAMINOPHEN 325 MG TAB PO PRN (18:06)
[2021-10-04] MEDS: KETOROLAC TROMETHAMINE 15 MG/ML VIAL IV PRN (18:37)
--- NOTE | 2021-10-04 18:42 | Consultation Report ---
DATE OF NOTE: 10/04/2021. CHIEF COMPLAINT: Right hand and wrist pain and swelling. HISTORY OF PRESENT ILLNESS: Patient is a 61-year-old female with past medical history significant fo r lupus, hypertension, hyperuricemia, and breast cancer, noticed some increased swelling and erythema on the dorsum of her right hand/wrist on 09/30/2021. She states this is not unusual for h er to get rashes with her history of lupus. The next day on 10/01/2021, she went to a local urgent c are. They thought she might have gout and started her on prednisone. The next day, 10/02/2021, it w as worsening and she went to her PCP and was started on oral Keflex. Again, she has had progressive pain, swelling, and erythema and presented to the ER today. An orthopedics consult was asked for. PHYSICAL EXAMINATION: Upon examination, she is resting in her bed, appears comfortable, although she is sitting with her right upper extremity elevated. She has obvious swelling about the hand and wri st. There is some dorsal erythema, more so than volar extending to the wrist region. She does state some altered sensation on the volar aspect of the thumb and index fingers. She states the other fin gers are neurovascularly intact as well as the dorsum of all the fingers. Her elbow is benign with n ormal range of motion without pain. LABORATORY DATA: Her labs are significant for a white count of 24.88 and ESR of 111 and a CRP of 15. 89. She had a CT of her hand, which is significant for evidence of cellulitis of the ulnar-sided sof t tissues of the forearm, more severe cellulitis throughout the hand greatest dorsally with significa nt soft tissue edema and fluid, and a multiloculated fluid collection along the dorsal aspect of the wrist and hand measuring approximately 2.5 x 3 x 1 cm. The above was discussed with Dr. Pina. He would like to get an MRI of the hand. Discussed with the patient for strict ice and elevation overnight and continuation of the IV antibiotics. We will allow her to eat this evening and reevaluate her in the a.m. Job ID: [id number]
[2021-10-04] MEDS: ENOXAPARIN INJ 40 MG/0.4 ML SYR SQ SCH (20:19)
[2021-10-04] MEDS: PIPERACILLIN/TAZOBACTAM 3.375 GM in DEXTROSE 5% 100 ML IV SCH (20:19)
[2021-10-04] MEDS: MONTELUKAST SODIUM 10 MG TABLET PO SCH (20:20)
[2021-10-04] MEDS: ESCITALOPRAM OXALATE 20 MG TAB PO SCH (20:20)
[2021-10-04] MEDS: HYDROXYCHLOROQUINE SULFATE 200 MG TAB PO SCH (20:20)
[2021-10-04] MEDS: MoRPHine SULFATE 2 MG/ML CARP IV PRN (23:22)
[2021-10-04] MEDS: PANTOprazole 40 MG TAB PO SCH (23:23)
[2021-10-05] MEDS ORDERED: VANCOMYCIN HCL 1,250 MG in SODIUM CHLORIDE 0.9% 500 ML IV SCH (00:01)
[2021-10-05] MEDS ORDERED: VANCOMYCIN HCL 1,000 MG in SODIUM CHLORIDE 0.9% 250 ML IV SCH (02:00)
[2021-10-05] MEDS: VANCOMYCIN HCL 1,000 MG in SODIUM CHLORIDE 0.9% 250 ML IV SCH ×2 (02:16→15:18)
[2021-10-05] MEDS: PIPERACILLIN/TAZOBACTAM 3.375 GM in DEXTROSE 5% 100 ML IV SCH ×3 (03:47→20:52)
[2021-10-05] MEDS: FAMOTIDINE 20 MG TAB PO SCH (05:53)
[2021-10-05] MEDS: MoRPHine SULFATE 2 MG/ML CARP IV PRN ×3 (05:53→20:23)
[2021-10-05 06:14] LABS: Hemoglobin 12.3 g/dL (12.0-16.0); Mean Corpuscular Hemoglobin 30.8 pg (25-34); Mean Corpuscular Hgb Conc 34.2 g/dL (32-36); Nucleated RBC # (auto) 0.03 K/uL (0-0); Nucleated RBC % (auto) 0.1 %; Platelet Count 321 K/uL (130-400); RDW Coefficient of Variation 15.3 % (11.5-14.5); RDW Standard Deviation 50.4 fL (36.4-46.3); White Blood Count 23.64 K/uL (4.8-10.8)
[2021-10-05 06:42] LABS: BUN Creatinine Ratio 21.8 (10-20); Calcium 8.8 mg/dl (8.5-10.1); Creatinine Clr Calc Pharmacy 79.6 ml/min; Est GFR (African American) 94.4 ml/min; Est GFR (Non-African American) 81.5 ml/min; Potassium 3.8 mmol/L (3.5-5.1)
[2021-10-05 06:48] LABS: Basophils # (auto) 0.07 K/uL (0-0.2); Basophils % (auto) 0.3 %; Eosinophils % (auto) 1.3 %; Immature Granulocytes # (auto) 0.88 K/uL (0.00-0.02); Immature Granulocytes % (auto) 3.7 %; Lymphocytes # (auto) 5.13 K/uL (1.2-3.4); Lymphocytes % (auto) 21.7 %; Monocytes % (auto) 5.9 %; Neutrophils # (auto) 15.86 K/uL (1.4-6.5); Neutrophils % (auto) 67.1 %
[2021-10-05] MEDS: KETOROLAC TROMETHAMINE 15 MG/ML VIAL IV PRN ×2 (07:47→19:28)
[2021-10-05] MEDS: LACTATED RINGER'S 1,000 ML IV SCH ×3 (07:48→19:46)
[2021-10-05] MEDS: allopurinoL 100 MG TAB PO SCH (08:51)
[2021-10-05] MEDS: HYDROXYCHLOROQUINE SULFATE 200 MG TAB PO SCH ×2 (08:51→20:51)
[2021-10-05] MEDS: LORATADINE 10 MG TAB PO SCH (08:52)
[2021-10-05] MEDS: CALCIUM 600MG + VIT D 400 IU TAB PO SCH (08:52)
[2021-10-05] MEDS: ASCORBIC ACID 500 MG TAB PO SCH (08:52)
[2021-10-05] MEDS: CHOLECALCIFEROL 1,000 UNITS 25 MCG TAB PO SCH (08:52)
[2021-10-05] MEDS: VITAMIN B COMPLEX TAB PO SCH (08:52)
[2021-10-05] MEDS: amLODIPine BESYLATE 5 MG TAB PO SCH (08:52)
[2021-10-05] MEDS: ASPIRIN 81 MG ECTAB PO SCH (08:52)
--- NOTE | 2021-10-05 09:16 | Pharmacy Report ---
Pharmacy Vanc AUC Short Note - Date of Service October 05, 2021 - Assessment & Plan Assessment 61 year old F started on vancomycin/zosyn for wrist abscess. Area becoming red/swollen on Friday. Had been started on steroids due to concern for gout. Area worsening and given keflex. Now presenting to hospital due to continued worsening of area. Hx of lupus. Blood cultures pending. CT showing abscess/cellulitis. MRI pending. Day # 2 of antimicrobial therapy. Vancomycin * AUC/SUKH is the preferred PK/PD target for vancomycin * AUC guided dosing is effective and associated with decreased risk of nephrotoxicity compared to traditional trough targets * Received loading dose of vancomycin 1750 mg x 1 yesterday. Started on vancomycin 1000 mg iv q 12 hrs * This dosing is estimated to produce a trough level of ~16 mcg/mL is predicted to achieve target AUC/SUKH of 400-600 mg/L.hr and may be associated with a 11 % risk of nephrotoxicity * Plan to order vancomycin level prior to the 1400 dose on 10/06 to assess dosing Zosyn * 3.375 gm iv q 8 hrs - appropriate for crcl >20 / borderline for 4.5 gm dose based on BMI, could consider increasing if worsening infection Pharmacy will continue to follow and will adjust dose/frequency as necessary. Thank you.
--- NOTE | 2021-10-05 10:45 | Orthopedic Progress Note ---
Date of Service October 05, 2021 Assessment & Plan (1) Abscess of wrist: Plan: Likely abscess noted on CT. MRI to be reviewed by Dr. Pina. Possible need for I/D of hand/wrist. Continue NPO status for now. Admission and Anticipated Discharge Date Admission Date: October 04, 2021 Subjective HD 1 Pt sleeping upon entering room. Easily awoken. Pain off and on through the night. States the hand feels about the same. No new complaints. Physical Exam Physical Exam: Hand with diffuse swelling dorsally. She looks like she has had some decrease to the swelling showing a small amount of wrinkling to the skin. Erythema continues from the hand up the forearm to the elbow. Continues with pain on palpation. Numbness remains in the thumb and index finger. Remainder of fingers feeling fine. No pain with passive DF of the fingers. Limited ROM of the fingers due to swelling and some discomfort. Most pain at wrist and proximal hand dorsally. No pain on palpation of the palm and volar aspect of the wrist. Cap refill < 2 seconds. Results & Data ([facility]) Vital Signs (Past 12 Hours) Vital Signs Temp Pulse Pulse Resp BP Pulse Ox 10/05/21 07:19 37.0 C 72 16 153/71 H 92 10/05/21 02:24 19 10/04/21 23:46 68 16 98
[2021-10-05] MEDS: ACETAMINOPHEN 325 MG TAB PO PRN (12:13)
--- NOTE | 2021-10-05 12:24 | Magnetic Resonance Report ---
MR hand RT wo con CLINICAL HISTORY: eval cellulitis vs abscess TECHNIQUE: Multisequence, multiplanar MR images of the right hand were obtained without contrast COMPARISON: Comparison is made to CT head 10/04/2021 FINDINGS: No evidence of acute fracture. No joint effusion is seen. Diffuse soft tissue swelling is seen. There are 12 mm nodules on the dorsal surface at the level of the carpal row. Bony edema is not seen. IMPRESSION: Diffuse soft tissue swelling is seen compatible with cellulitis without evidence of underlying osteom yelitis. Possible abscesses are noted on the dorsal surface at the level of the carpal row. If furthe r evaluation is desired, ultrasound can be performed. ACT 112: Negative or not required by law. Electronically signed by: Romain Vasquez M.D. 10/05/2021 12:21 PM
--- NOTE | 2021-10-05 15:12 | Hospitalist Progress Note ---
Date of Service October 05, 2021 Assessment & Plan (1) Abscess of wrist: Plan: -With WBC 24, elevated procalcitonin, ESR, CRP. -Failed treatment as outpatient with prednisone and Keflex, d/c these. -Vanco and Zosyn for now. Blood cultures sent, pending. -Orthopedic consulted for evaluation of patient - MRI pending for surgical decision -Remain NPO pending surgical decision -IVF, prn pain medications. (2) Lupus: Plan: -Stable. -Continue hydroxychloroquine. -D/C pimecrolimus and betamethasone cream for now. (3) HTN (hypertension): Plan: -Continue amlodipine, continue to monitor pressure, manage pain. (4) Hyperuricemia: Plan: -On outpatient labs, patient is currently on allopurinol for prevention of gout attacks. -Do not suspect this is the cause of patient's wrist pain. -Continue allopurinol 100 mg daily. Plan: VTE Prophylaxis - Lovenox 40mg SQ daily Diet - NPO pending sugical decision Disposition - continue on med/surg Admission and Anticipated Discharge Date Admission Date: October 05, 2021 Subjective No significant change in erythema and swelling overnight. Still having numbness in median nerve distribution. No fever or chills. Erythema does not extend beyonf elbow. Review of Systems Review of Systems: All systems reviewed & are unremarkable except as noted in Subjective Physical Exam Constitutional: WD/WN, vitals as above Eyes: + anicteric sclerae; normal pupil size ENMT: external ear and nose normal, oropharynx normal Respiratory: normal respiratory effort, lungs clear to auscultation Cardiovascular: RRR, no murmur, no edema Gastrointestinal (Abdomen): Percussion/Palpation: abdomen soft; abdomen nontender Musculoskeletal: Similar to previous day degree of erythema mainly on dorsal aspect of left hand with tracking back to her elbow, plantar surface without swelling but tracking to mid forearm. Ongoing numbness present in thumb and 2nd finger. Mildly improved movement of her finger but extremely limited due to swelling. Neurologic: awake Results & Data Results & Data ([facility]) Vital Signs (Past 12 Hours) Vital Signs Temp Pulse Resp BP Pulse Ox 10/05/21 14:59 36.9 C 91 H 16 147/71 H 91 10/05/21 07:19 37.0 C 72 16 153/71 H 92 PG Care Time/CCT Total # of Minutes Spent Total Time Spent with Patient: Total time spent is greater than 50% in coordination of care (as documented) at patient's floor/unit and/or counseling patient: Coding Level of Care Code 60094 Subseq Hosp Care Lvl 2 Diagnoses Abscess of wrist L02.419 Lupus M32.9 HTN (hypertension) I10 Hyperuricemia E79.0
[2021-10-05] MEDS ORDERED: PROPOFOL IV EMULSION 10 MG/ML 20 ML VIAL IV ONE (17:04)
[2021-10-05] MEDS ORDERED: fentaNYL citrate 100 MCG/2 ML VIAL ONE ×2 (17:04→17:58)
[2021-10-05] MEDS ORDERED: LIDOCAINE 2% 2 ML VIAL/AMP(20MG/ML) INFIL ONE (17:04)
[2021-10-05] MEDS ORDERED: MIDAZOLAM HCL 1 MG/ML 2ML VIAL ONE (17:05)
[2021-10-05] MEDS ORDERED: LIDOCAINE 1% LOCAL 20 ML VIAL ONE (17:15)
[2021-10-05] MEDS ORDERED: BUPIVACAINE 0.5 % 5 MG/1 ML MPF 30ML VIAL ONE (17:15)
[2021-10-05] MEDS ORDERED: ONDANSETRON INJ 2 MG/ML 2 ML VIAL IV PRN (17:20)
[2021-10-05] MEDS ORDERED: ePHEDrine sulfate 50 MG/ML AMP IV PRN (17:20)
[2021-10-05] MEDS ORDERED: ATROPINE SULFATE 0.1 MG/ML 10ML SYR IV PRN (17:20)
--- NOTE | 2021-10-05 17:20 | Anesthesiology Consultation ---
Date of Service October 05, 2021 Assessment & Plan Chart Review Chart Review: Acceptable Risk for Surgery and Patient NOT seen in Pre Admission Testing Consults Requested none ASA ASA3 Proposed Anesthesia Anesthesia Type: General Risk / Benefits Reviewed With: PT / POA / Parent / Guardian, Accepts Plan and Informed Consent Obtained History Surgery Operation Date: 10/05/21 11:45 Proposed Procedures p Right Wrist Incision and Drainage - uHan Pina M.D. Operation Date: 10/06/21 09:30 Proposed Procedures p Incision and Drainage of Right Wrist - Huan Pina M.D. Height/Weight Height: 5 ft 3 in Weight: 89.9 kg Allergies Allergy/AdvReac Type Severity Reaction Status Date / Time No Known Allergies Allergy Unknown Verified 10/04/21 14:48 Medications Home Medications Medication Instructions Recorded Confirmed Last Taken Lactobacillus acidophilus 1 cap PO QAM 07/30/18 10/04/21 10/04/21 (Acidophilus) ascorbic acid (vitamin C) 1,000 mg 3,000 mg PO QAM 07/30/18 10/04/21 10/04/21 tablet,extended release (Vitamin C ER) aspirin 81 mg tablet,delayed 81 mg PO QAM 07/30/18 10/04/21 10/04/21 release (Aspirin Low Dose) betamethasone, augmented 0.05 % 1 applic TOPICAL BID PRN 07/30/18 10/04/21 09/20/21 topical gel calcium carbonate 600 mg-vitamin 2 tab PO QAM 07/30/18 10/04/21 10/04/21 D3 20 mcg (800 unit) chewable tablet (Caltrate 600 plus D) cholecalciferol (vitamin D3) 25 2,000 unit PO QAM 07/30/18 10/04/21 10/04/21 mcg (1,000 unit) capsule (Vitamin D3) echinacea 380 mg capsule 2 cap PO QAM 07/30/18 10/04/21 10/04/21 flaxseed oil 1,000 mg capsule 1,000 mg PO BID 07/30/18 10/04/21 10/04/21 hydroxychloroquine 200 mg tablet 200 mg PO BID 07/30/18 10/04/21 10/04/21 montelukast 10 mg tablet 10 mg PO HS 07/30/18 10/04/21 10/03/21 multivitamin 1 tab PO QAM 07/30/18 10/04/21 10/04/21 omega 1-bcr-dkk-fish oil 1,000 mg 2 cap PO QAM 07/30/18 10/04/21 10/04/21 (120 mg-180 mg) capsule (Fish Oil) pimecrolimus 1 % topical cream 1 applic TOPICAL DIRECTED 07/30/18 10/04/21 07/30/18 allopurinol 100 mg tablet 100 mg PO QAM 10/04/21 10/04/21 10/04/21 amlodipine 5 mg tablet 5 mg PO QAM 10/04/21 10/04/21 10/04/21 cephalexin 500 mg capsule 500 mg PO TID 10/04/21 10/04/21 10/04/21 09:00 escitalopram oxalate 20 mg tablet 20 mg PO HS 10/04/21 10/04/21 10/03/21 famotidine 20 mg tablet 20 mg PO DAILYBB 10/04/21 10/04/21 10/04/21 hydrocodone 5 mg-acetaminophen 325 1 tab PO Q4H PRN 10/04/21 10/04/21 10/04/21 04:00 mg tablet loratadine 10 mg tablet 10 mg PO QAM 10/04/21 10/04/21 10/04/21 prednisone 10 mg tablet 10 mg PO .TAPER DOSE 10/04/21 10/04/21 10/03/21 30 mg prednisone 10 mg tablet 10 mg PO .TAPER DOSE 10/04/21 10/04/21 10/03/21 30 mg vitamin B complex 1 tab PO QAM 10/04/21 10/04/21 10/04/21 Active Medications Generic Name Dose Route Start Last Admin Trade Name Freq PRN Reason Stop Dose Admin Acetaminophen 650 mg 10/04/21 17:14 10/05/21 12:13 Acetaminophen 325 Mg Tab PO 11/03/21 17:13 650 mg Q4H PRN Administration Pain or Fever Allopurinol 100 mg 10/05/21 09:00 10/05/21 08:51 Allopurinol 100 Mg Tab PO 11/04/21 08:59 100 mg QAM MARLEN Administration Amlodipine Besylate 5 mg 10/05/21 09:00 10/05/21 08:52 Amlodipine Besylate 5 Mg Tab PO 11/04/21 08:59 5 mg QAM MARLEN Administration Ascorbic Acid 3,000 mg 10/05/21 09:00 10/05/21 08:52 Ascorbic Acid 500 Mg Tab PO 11/04/21 08:59 3,000 mg QAM MARLEN Administration Aspirin 81 mg 10/05/21 09:00 10/05/21 08:52 Aspirin 81 Mg Ectab PO 11/04/21 08:59 81 mg QAM MARLEN Administration Enoxaparin Sodium 40 mg 10/04/21 21:00 10/04/21 20:19 Enoxaparin Inj 40 Mg/0.4 Ml Syr SQ 11/03/21 20:59 40 mg Q24H MARLEN Administration Escitalopram Oxalate 20 mg 10/04/21 21:00 10/04/21 20:20 Escitalopram Oxalate 20 Mg Tab PO 11/03/21 20:59 20 mg HS MARLEN Administration Famotidine 20 mg 10/05/21 06:30 10/05/21 05:53 Famotidine 20 Mg Tab PO 11/04/21 06:29 20 mg DAILYBB MARLEN Administration Hydroxychloroquine Sulfate 200 mg 10/04/21 21:00 10/05/21 08:51 Hydroxychloroquine Sulfate 200 Mg Tab PO 11/03/21 20:59 200 mg BID MARLEN Administration Lactated Ringer's 1,000 mls @ 80 mls/hr 10/04/21 16:15 10/05/21 16:30 Lr IV 11/03/21 16:14 Not Given .[id number] MARLEN Piperacillin Sod/Tazobactam 115 mls @ 28.75 mls/hr 10/04/21 20:00 10/05/21 16:15 Sod 3.375 gm/ Dextrose IV 10/11/21 19:59 Infused Q8H MARLEN Infusion Protocol Vancomycin HCl 1,000 mg/ 270 mls @ 200 mls/hr 10/05/21 02:00 10/05/21 16:51 Sodium Chloride IV 10/12/21 01:59 Infused Q12H MARLEN Infusion Ketorolac Tromethamine 10 mg 10/04/21 17:57 10/05/21 07:47 Ketorolac Tromethamine 15 Mg/Ml Vial IV 10/09/21 17:56 10 mg Q6H PRN Administration Pain Loratadine 10 mg 10/05/21 09:00 10/05/21 08:52 Loratadine 10 Mg Tab PO 11/04/21 08:59 10 mg QAM MARLEN Administration Montelukast Sodium 10 mg 10/04/21 21:00 10/04/21 20:20 Montelukast Sodium 10 Mg Tablet PO 11/03/21 20:59 10 mg HS MARLEN Administration Morphine Sulfate 2 mg 10/04/21 17:57 10/05/21 12:46 Morphine Sulfate 2 Mg/Ml Carp IV 10/18/21 17:56 2 mg Q3H PRN Administration Severe Pain Multivitamins/Minerals 2 tab 10/05/21 09:00 10/05/21 08:52 Calcium 600mg + Vit D 400 Iu Tab PO 11/04/21 08:59 2 tab QAM MARLEN Administration Pantoprazole Sodium 40 mg 10/04/21 21:00 10/04/21 23:23 Pantoprazole 40 Mg Tab PO 11/03/21 20:59 40 mg QPM MARLEN Administration Vitamin B Complex 1 tab 10/05/21 09:00 10/05/21 08:52 Vitamin B Complex Tab PO 11/04/21 08:59 1 tab QAM MARLEN Administration Vitamin D 2,000 units 10/05/21 09:00 10/05/21 08:52 Cholecalciferol 1,000 Units 25 Mcg Tab PO 11/04/21 08:59 2,000 units QAM MARLEN Administration NPO Date Last Intake of Fluids: 10/04/21 Time Last Intake of Fluids: 20:00 Date Last Intake of Solids: 10/04/21 Time Last Intake of Solids: 20:00 Past Medical History Medical History Breast cancer HTN (hypertension) Lupus Exercise / Class Metabolic Activity II 4-5 Yardwork/Stairs/Walk up hill Past Anesthesia History No Hx of Anesthesia Complications and No Family Hx of Anesthesia Complications History of PONV No Hx of PONV and No Hx of Motion Sickness Social History Smoking Status: Never smoker Do You Dip or Chew Tobacco: No Hx Alcohol Use: Yes Alcohol type: beer and wine alcohol intake frequency: holidays/special occasions only Hx Substance Use: No substance use type: does not use Physical Exam Vital Signs Last Vital Signs Temp 38.1 C H 10/05/21 16:50 Pulse 66 10/05/21 16:50 Resp 20 10/05/21 16:50 BP 142/60 H 10/05/21 16:50 Pulse Ox 95 10/05/21 16:50 ENMT Mouth: no dentition abnormality Thyromental Distance: > or= 3.5 Finger Breadths Mallampati Class: II Neck normal visual inspection Respiratory normal respiratory effort Auscultation: lungs clear to auscultation bilaterally Cardiovascular Rate/Rhythm: regular rate and regular rhythm Psychiatric Orientation: alert Testing Laboratory Results 10/05/21 05:39 10/05/21 05:39 PT 10.2 Seconds (9.0-12.0) 10/04/21 12:58 INR 1.0 (0.9-1.1) 10/04/21 12:58 APTT 27.0 Seconds (21.0-31.0) 10/04/21 12:58 Urine Color Yellow 10/04/21 15:33 Urine Appearance Clear (Clear) 10/04/21 15:33 Urine pH 6.0 (4.5-7.5) 10/04/21 15:33 Ur Specific [place] 1.028 (1.000-1.030) 10/04/21 15:33 Urine Protein Negative (Negative) 10/04/21 15:33 Urine Glucose (UA) Negative (Negative) 10/04/21 15:33 Urine Ketones Negative (Negative) 10/04/21 15:33 Urine Nitrite Negative (Negative) 10/04/21 15:33 Ur Leukocyte Esterase 1+ (Negative) H 10/04/21 15:33 Urine WBC (Auto) 5-10 /hpf (0-5) H 10/04/21 15:33 Urine RBC (Auto) 5-10 /hpf (0-4) H 10/04/21 15:33 U Hyaline Cast (Auto) 0 /lpf (0-5) 10/04/21 15:33 U Epithel Cells (Auto) 5-10 /lpf (0-5) H 10/04/21 15:33 Urine Bacteria (Auto) Negative (Negative) 10/04/21 15:33 10/04/21 12:58 Aerobic Blood Culture - Preliminary Blood No growth in Aerobic bottle after 24 hours. Anaerobic Blood Culture - Preliminary No growth in Anaerobic bottle after 24 hours. 10/04/21 13:16 Aerobic Blood Culture - Preliminary Blood No growth in Aerobic bottle after 24 hours. Anaerobic Blood Culture - Preliminary No growth in Anaerobic bottle after 24 hours.
--- NOTE | 2021-10-05 17:29 | History & Physical Bridge Note ---
Date of Service October 05, 2021 History & Physical Bridge Note I have examined the patient, reviewed the History & Physical and in the interval since the performance of the History & Physical I have noted the following changes of clinical significance: no changes noted MRI and CT scan show abscess on the dorsal aspect of the right hand. She reports some mild numbness on the volar aspect of the index and middle fingers in the median nerve distribution, but sensations intact to light touch on exam, and intact thumb abduction, although limited due to pain and swelling. No purulence noted around the median nerve in the carpal tunnel on MRI. There is a lot of soft tissue swelling and subcutaneous cellulitis associated with the dorsal hand and wrist abscesses. We will plan for irrigation and debridement of the abscesses dorsally. I do not think she requires a carpal tunnel release, but we will monitor median nerve function postoperatively and ensure that her sensation returns. Risks, benefits, and alternatives of surgery were explained in detail. The surgical procedure, as well as postoperative recovery and rehabilitation, was also explained in detail. Risks include bleeding; persistent infection; damage to surrounding structures such as nerves, blood vessels, and tendons that run in the area; persistent pain, weakness, or stiffness; or need for further surgery. The patient understands all of this and wishes to proceed with surgery. Informed consent was obtained.
--- NOTE | 2021-10-05 18:26 | Post Operative Brief Note ---
Immediate Post Op Note v1 Date of Surgery October 05, 2021 Pre & Post Diagnosis Operation Date: 10/05/21 11:45 Pre-Op Diagnosis: Right hand abcess Post-Op Diagnosis: Right hand abcess I identified the patient and participated in the time-out.: Yes Procedure Operation Date: 10/05/21 11:45 Actual Procedures p Right Hand Irrigation and Debridement(Right) - Huan Pina M.D. Surgeon Huan Pina [place] [employer] None Estimated Blood Loss 25 Findings Consistent with Post-Op Diagnosis Drains Hemovac Drain
--- NOTE | 2021-10-05 18:28 | Operative Report ---
Post Operative Report Pre & Post Diagnosis Operation Date: 10/05/21 11:45 Pre-Op Diagnosis: Right hand dorsal abscess Post-Op Diagnosis: Right hand dorsal abscess with severe surrounding soft tissue edema consistent with cellulitis I identified the patient and participated in the time-out.: Yes Procedure Operation Date: 10/05/21 11:45 Actual Procedures Right Hand Irrigation and Debridement of complex dorsal abscess (71577) - Huan Pina M.D. Surgeon Huan Pina [employer] Dist[employer] None Estimated Blood Loss 25 Findings Consistent with Post-Op Diagnosis Specimens Culture swab specimen sent for Gram stain, anaerobic culture, anaerobic culture Drains Medium Hemovac Anesthesia Type General Complications none Disposition Disposition: Recovery Room Indications Ms. Harvey is a 61-year-old female with progressive pain and swelling in the dorsal aspect of her right hand despite a course of oral antibiotics. History, clinical exam, and imaging were consistent with the above diagnosis. Risks, benefits, and alternatives of surgery were explained in detail. The patient understood all this and wished to proceed. Description of Procedure Patient was identified in the preoperative holding area. Operative extremity was marked. Patient was then brought back to the operating room, and general anesthesia was induced without complication. Tourniquet was placed on the right upper arm. Forearm and hand was then prepped and draped in a standard sterile fashion using Chlorhexidine prep. The forearm was then exsanguinated with an Esmarch starting proximal to the hand abscess, and the tourniquet was inflated. There was no clear superficial erosion of the abscess; the entire hand and distal forearm was diffusely swollen. The dorsal hand and wrist area seem most fluctuant, consistent with the areas of abscess seen on preoperative MRI and CT scan. I made a longitudinal incision over the distal aspect of the wrist and extending into the hand in this area of greatest fluctuance. I bluntly dissected through subcutaneous tissues. There was abundant diffuse subcutaneous edema and clear serous fluid, but I did not immediately encountered the abscesses. I continued the dissection deeper into the hand. Deep fascia covering the extensor tendons was encountered. This fascia at the distal aspect of the extensor retinaculum was opened to ensure that there was no abscess extending into the extensor tendon compartments. No pockets of purulent fluid were encountered here. I continued my dissection over towards the ulnar side of the hand and wrist and encountered several small pockets of purulent fluid consistent with the abscesses seen on preoperative imaging; this purulent fluid was sampled on a culture swab and sent for Gram stain, aerobic culture, and anaerobic culture. I carefully bluntly dissected through the subcutaneous tissues all around the dorsal hand and wrist through multiple layers to ensure that all purulent fluid and abscess cavities were completely decompressed. I then aggressively but carefully debrided the abscess cavities with scissors, curette, and rongeur. Upon manual compression of the entire dorsal hand and wrist area, I was not able to obtain any further purulent fluid, indicating complete decompression of the abscesses, but there was copious amounts of serous fluid consistent with subcutaneous edema and cellulitis. After thorough debridement was complete, I then copiously irrigated the wound with sterile saline via gravity irrigation. Hemovac drain was then placed in the abscess cavity and brought out the skin in the dorsal aspect of the wrist. Skin was then closed with 4-0 Prolene. I then anesthetized the wound bed with a 50/50 mixture of 1% lidocaine and 0.5% Marcaine without epinephrine. Sterile dressings were then applied with Xeroform, sterile gauze, sterile Webril, and Abel wrap. The drapes were removed, the patient was awakened from anesthesia, and taken to the Post Anesthesia Care Unit in stable condition. There were no immediate complications from the procedure. I was present and scrubbed for the entire procedure. I attest to the content of the Intraoperative Record and any orders documented therein. Any exceptions are noted below.
[2021-10-05] MEDS: fentaNYL citrate 100 MCG/2 ML VIAL IV PRN ×2 (18:36→18:41)
--- NOTE | 2021-10-05 19:13 | Anesthesiology Progress Note ---
Date of Service October 05, 2021 Anesthesia Post Procedure Vital Signs Vital Signs: Temp Pulse Pulse Pulse Resp BP Pulse Ox 10/05/21 19:05 66 16 152/61 H 95 10/05/21 18:55 36.2 C L 66 16 155/65 H 95 10/05/21 18:45 66 18 154/64 H 96 10/05/21 18:35 65 18 163/65 H 97 10/05/21 18:29 36.1 C L 74 18 162/69 H 97 10/05/21 16:50 38.1 C H 66 20 142/60 H 95 10/05/21 14:59 36.9 C 91 H 16 147/71 H 91 10/05/21 07:19 37.0 C 72 16 153/71 H 92 10/05/21 02:24 19 10/04/21 23:46 68 16 98 10/04/21 21:59 37 C 64 18 128/63 94 Pain Intensity Right Hand: Pain Intensity: 10 Transfer of Care Handoff Completed per policy Notes Mental Status: alert / awake / arousable Patient Amnestic to Procedure: Yes Nausea / Vomiting: adequately controlled Pain: adequately controlled Airway Patency, RR, SpO2: stable & adequate BP & HR: stable & adequate Hydration State: stable & adequate Anesthetic Complications: no major complications apparent
[2021-10-05] MEDS: MONTELUKAST SODIUM 10 MG TABLET PO SCH (20:51)
[2021-10-05] MEDS: PANTOprazole 40 MG TAB PO SCH (20:51)
[2021-10-05] MEDS: ESCITALOPRAM OXALATE 20 MG TAB PO SCH (20:51)
[2021-10-05] MEDS: ENOXAPARIN INJ 40 MG/0.4 ML SYR SQ SCH (20:51)
--- NOTE | 2021-10-05 21:48 | Electrocardiogram Report ---
Test Reason : Blood Pressure : / mmHG Vent. Rate : 072 BPM Atrial Rate : 072 BPM P-R Int : 144 ms QRS Dur : 096 ms QT Int : 422 ms P-R-T Axes : 038 010 035 degrees QTc Int : 462 ms Normal sinus rhythm Normal ECG No previous ECGs available Confirmed by Mark Craven ([id number]) on 10/05/2021 9:48:14 PM Referred By: REFERRED SELF Confirmed By:Mark Craven
[2021-10-05] MEDS ORDERED: oxyCODONE/ACETAMINOPHEN 5mg/325mg TAB PO STA (23:27)
[2021-10-06] MEDS: VANCOMYCIN HCL 1,000 MG in SODIUM CHLORIDE 0.9% 250 ML IV SCH ×4 (01:22→23:24)
[2021-10-06] MEDS: PIPERACILLIN/TAZOBACTAM 3.375 GM in DEXTROSE 5% 100 ML IV SCH ×3 (03:56→20:09)
[2021-10-06] MEDS: FAMOTIDINE 20 MG TAB PO SCH (06:00)
[2021-10-06 07:12] LABS: Hematocrit (blood only) 32.9 % (37-47); Hemoglobin 11.4 g/dL (12.0-16.0); Mean Corpuscular Hemoglobin 30.6 pg (25-34); Mean Corpuscular Hgb Conc 34.7 g/dL (32-36); Mean Corpuscular Volume 88.2 fL (80-100); Mean Platelet Volume 9.5 fL (7.4-10.4); Platelet Count 327 K/uL (130-400); RDW Coefficient of Variation 14.8 % (11.5-14.5); RDW Standard Deviation 47.5 fL (36.4-46.3); Red Blood Count 3.73 M/uL (4.2-5.4); White Blood Count 24.23 K/uL (4.8-10.8)
[2021-10-06] MEDS: LACTATED RINGER'S 1,000 ML IV SCH (07:20)
[2021-10-06 07:32] LABS: Basophils # (auto) 0.03 K/uL (0-0.2); Basophils % (auto) 0.1 %; Eosinophils # (auto) 0.01 K/uL (0-0.5); Immature Granulocytes # (auto) 0.31 K/uL (0.00-0.02); Immature Granulocytes % (auto) 1.3 %; Lymphocytes # (auto) 2.86 K/uL (1.2-3.4); Lymphocytes % (auto) 11.8 %; Monocytes # (auto) 0.76 K/uL (0.11-0.59); Monocytes % (auto) 3.1 %; Neutrophils # (auto) 20.26 K/uL (1.4-6.5); Neutrophils % (auto) 83.7 %
[2021-10-06 07:46] LABS: BUN Creatinine Ratio 28.3 (10-20); Calcium 8.6 mg/dl (8.5-10.1); Creatinine Clr Calc Pharmacy 103.4 ml/min; Est GFR (African American) 113.2 ml/min; Est GFR (Non-African American) 97.7 ml/min; Potassium 4.3 mmol/L (3.5-5.1)
[2021-10-06] MEDS: HYDROXYCHLOROQUINE SULFATE 200 MG TAB PO SCH ×2 (08:56→20:15)
[2021-10-06] MEDS: CHOLECALCIFEROL 1,000 UNITS 25 MCG TAB PO SCH (08:56)
[2021-10-06] MEDS: allopurinoL 100 MG TAB PO SCH (08:56)
[2021-10-06] MEDS: LORATADINE 10 MG TAB PO SCH (08:57)
[2021-10-06] MEDS: VITAMIN B COMPLEX TAB PO SCH (08:57)
[2021-10-06] MEDS: amLODIPine BESYLATE 5 MG TAB PO SCH (08:57)
[2021-10-06] MEDS: CALCIUM 600MG + VIT D 400 IU TAB PO SCH (08:57)
[2021-10-06] MEDS: ASPIRIN 81 MG ECTAB PO SCH (08:57)
[2021-10-06] MEDS: ASCORBIC ACID 500 MG TAB PO SCH (08:57)
--- NOTE | 2021-10-06 09:07 | Orthopedic Progress Note ---
Date of Service October 06, 2021 Assessment & Plan (1) Abscess of wrist: Plan: Postoperative day #1 status post irrigation and debridement of right dorsal hand and wrist abscess. -Intraoperatively, the abscesses were fairly small. She had much more severe diffuse subcutaneous edema consistent with cellulitis. -Continue IV antibiotics for treatment of cellulitis. Plan to tailor antibiotics once culture results are known. -Plan for dressing change and drain removal tomorrow. -Encourage patient to work on very aggressive hand and finger range of motion, both actively and passively. Occupational Therapy order was placed to help her with this. Admission and Anticipated Discharge Date Admission Date: October 05, 2021 Subjective Patient resting comfortably. She reports that her pain is significantly improved in her right hand compared to prior to surgery. She reports some persistent numbness in the median nerve distribution, although improved from prior. She reports pre-existing carpal tunnel symptoms, and her numbness is back to her previous baseline level that she had prior to this infection. Overall, her burning pain on the dorsum of the hand is significantly improved. She reports that her finger motion is slightly improved. Physical Exam Physical Exam: Right hand dressings and drain are clean, dry, intact. She still has quite a bit of diffuse edema within her hand and fingers. This is causing quite a bit of stiffness and difficulty with finger motion. Results & Data ([facility]) Vital Signs (Past 12 Hours) Vital Signs Temp Pulse Resp BP Pulse Ox 10/06/21 07:29 36.6 C 63 16 127/70 91 10/06/21 04:15 36.6 C 62 18 119/66 94 10/05/21 22:25 36.6 C 75 17 127/66 93 10/05/21 21:25 36.6 C 67 17 145/72 H 93 No significant drain output overnight. Laboratory Results Cultures are still pending. Gram stain was negative for organisms.
[2021-10-06] MEDS: ACETAMINOPHEN 325 MG TAB PO PRN ×2 (10:31→20:15)
[2021-10-06] MEDS ORDERED: VANCOMYCIN TROUGH ONE (13:30)
--- NOTE | 2021-10-06 15:36 | Pharmacy Report ---
Pharmacy Vanc AUC Short Note - Date of Service October 06, 2021 - Assessment & Plan Assessment 61 year old F receiving Vancomcyin/Zosyn for treatment of wrist abscess. Day # 3 of antimicrobial therapy. Patient had right hand irrigation and debridement of complex dorsal abscess on 10/05/21 Plan Laboratory Tests 10/06/21 14:16 Vancomycin Trough 9.4 L Vancomycin * AUC/SUKH is the preferred PK/PD target for vancomycin * AUC guided dosing is effective and associated with decreased risk of nephrotoxicity compared to traditional trough targets * New dosing regimen predicted to achieve target AUC/SUKH of 400-600 mg/L.hr and may be associated with a 11 % risk of nephrotoxicity * Change to 1250 mg IV every 8 hours * Trough or random level ordered for: 10/08/21 Zosyn dose still appropriate based on renal function Pharmacy will continue to follow and will adjust dose/frequency as necessary. Thank you.
[2021-10-06] MEDS: KETOROLAC TROMETHAMINE 15 MG/ML VIAL IV PRN (18:23)
--- NOTE | 2021-10-06 18:38 | Hospitalist Progress Note ---
Date of Service October 06, 2021 Assessment & Plan (1) Abscess of wrist: Plan: -With WBC 24, elevated procalcitonin, ESR, CRP. -Failed treatment as outpatient with prednisone and Keflex, d/c these. -Vanco and Zosyn for now. Blood cultures - pending -prn pain medications. -Appreciate orthopedic management s/p Right Hand Irrigation and Debridement of complex dorsal abscess 10/05 (2) Lupus: Plan: -Stable. -Continue hydroxychloroquine. -D/C pimecrolimus and betamethasone cream for now. (3) HTN (hypertension): Plan: -Continue amlodipine, continue to monitor pressure, manage pain. (4) Hyperuricemia: Plan: -On outpatient labs, patient is currently on allopurinol for prevention of gout attacks. -Do not suspect this is the cause of patient's wrist pain. -Continue allopurinol 100 mg daily. Plan: VTE Prophylaxis - Lovenox 40mg SQ daily Diet - heart healthy Disposition - continue on med/surg Admission and Anticipated Discharge Date Admission Date: October 05, 2021 Subjective Moving fingers much easier this morning after incision and drainage yesterday. Sensation improved in thumb and 2nd finger. No fever or chills. Review of Systems Review of Systems: All systems reviewed & are unremarkable except as noted in Subjective Physical Exam Constitutional: WD/WN, vitals as above Respiratory: normal respiratory effort, lungs clear to auscultation Cardiovascular: RRR, no murmur, no edema Gastrointestinal (Abdomen): Percussion/Palpation: abdomen soft; abdomen nontender Skin: arm now in surgical dressing, fingers covered in antiseptic but does not appear to be erythematous and moving much improved. Sensation intact. Movement and swelling appears much improved from non covered areas. Surgical drains x2 in place with serosanguineous fluid Neurologic: awake Results & Data Results & Data ([facility]) Vital Signs (Past 12 Hours) Vital Signs Temp Pulse Resp BP Pulse Ox 10/06/21 15:28 36.7 C 78 16 154/71 H 95 10/06/21 07:29 36.6 C 63 16 127/70 91 PG Care Time/CCT Total # of Minutes Spent Total Time Spent with Patient: Total time spent is greater than 50% in coordination of care (as documented) at patient's floor/unit and/or counseling patient: Coding Level of Care Code 84348 Subseq Hosp Care Lvl 2 Diagnoses Abscess of wrist L02.419 Lupus M32.9 HTN (hypertension) I10 Hyperuricemia E79.0
[2021-10-06] MEDS: ENOXAPARIN INJ 40 MG/0.4 ML SYR SQ SCH (20:15)
[2021-10-06] MEDS: ESCITALOPRAM OXALATE 20 MG TAB PO SCH (20:15)
[2021-10-06] MEDS: MONTELUKAST SODIUM 10 MG TABLET PO SCH (20:15)
[2021-10-06] MEDS: PANTOprazole 40 MG TAB PO SCH (20:16)
[2021-10-07] MEDS: KETOROLAC TROMETHAMINE 15 MG/ML VIAL IV PRN ×3 (00:36→16:02)
[2021-10-07] MEDS: PIPERACILLIN/TAZOBACTAM 3.375 GM in DEXTROSE 5% 100 ML IV SCH ×3 (04:51→20:09)
[2021-10-07] MEDS: FAMOTIDINE 20 MG TAB PO SCH (05:38)
[2021-10-07 05:45] LABS: Hematocrit (blood only) 33.4 % (37-47); Hemoglobin 11.4 g/dL (12.0-16.0); Mean Corpuscular Hemoglobin 30.8 pg (25-34); Mean Corpuscular Hgb Conc 34.1 g/dL (32-36); Mean Corpuscular Volume 90.3 fL (80-100); Mean Platelet Volume 9.7 fL (7.4-10.4); Platelet Count 366 K/uL (130-400); RDW Coefficient of Variation 14.9 % (11.5-14.5); RDW Standard Deviation 49.7 fL (36.4-46.3); White Blood Count 18.34 K/uL (4.8-10.8)
[2021-10-07 06:09] LABS: BUN Creatinine Ratio 21.9 (10-20); Calcium 8.5 mg/dl (8.5-10.1); Est GFR (African American) 102.3 ml/min; Est GFR (Non-African American) 88.3 ml/min; Potassium 3.9 mmol/L (3.5-5.1)
[2021-10-07 07:00] LABS: ALC (manual) 6.11 K/uL (1.2-3.4); ANC (manual) 11.26 K/uL (1.4-6.5); Eosinophils # (manual) 0.64 K/uL (0-0.5); Eosinophils % (manual) 3.5 %; Lymphocytes # (manual) 6.11 K/uL (1.2-3.4); Lymphocytes % (manual) 33.3 %; Monocytes # (manual) 0.33 K/uL (0.11-0.59); Monocytes % (manual) 1.8 %; Neutrophils # (manual) 11.26 K/uL (1.4-6.5); Neutrophils % (manual) 61.4 %; RBC Morphology Unremarkable
[2021-10-07] MEDS: HYDROXYCHLOROQUINE SULFATE 200 MG TAB PO SCH ×2 (08:38→20:14)
[2021-10-07] MEDS: CHOLECALCIFEROL 1,000 UNITS 25 MCG TAB PO SCH (08:38)
[2021-10-07] MEDS: VITAMIN B COMPLEX TAB PO SCH (08:38)
[2021-10-07] MEDS: ASPIRIN 81 MG ECTAB PO SCH (08:38)
[2021-10-07] MEDS: amLODIPine BESYLATE 5 MG TAB PO SCH (08:38)
[2021-10-07] MEDS: allopurinoL 100 MG TAB PO SCH (08:38)
[2021-10-07] MEDS: LORATADINE 10 MG TAB PO SCH (08:38)
[2021-10-07] MEDS: ASCORBIC ACID 500 MG TAB PO SCH (08:39)
[2021-10-07] MEDS: CALCIUM 600MG + VIT D 400 IU TAB PO SCH (08:39)
[2021-10-07] MEDS: VANCOMYCIN HCL 1,000 MG in SODIUM CHLORIDE 0.9% 250 ML IV SCH ×2 (08:43→16:03)
--- NOTE | 2021-10-07 10:58 | Orthopedic Progress Note ---
Date of Service October 07, 2021 Assessment & Plan (1) Abscess of wrist: Plan: Postoperative day #2 status post right hand and wrist irrigation debridement of dorsal abscess. -Generalized cellulitis and edema continues to improve with IV antibiotics. -Continue with aggressive range of motion, elevation, ice, and edema control on her right hand. -I think she would likely benefit from another day or 2 of IV antibiotics while cultures are still pending. -We will continue to follow to ensure that she continues to improve. -Follow-up with Dr. Pina in orthopedic surgery clinic 10 to 14 days after surgery. Please call [facility] [place] at [phone] to make an appointment. We will also get her set up with outpatient hand therapy to work on continued range of motion of her hand and fingers. Admission and Anticipated Discharge Date Admission Date: October 05, 2021 Subjective Patient continues to improve. She is resting comfortably. She reports the pain and swelling in her hand continues to improve with time. She work with occupational therapy today, and is getting better movement in her hand and fingers. She is now able to oppose to her middle finger; she was unable to oppose even to her index finger preoperatively due to the pain and swelling. Physical Exam Physical Exam: Dressings were taken down and changed, and Hemovac drain was removed. Incision is healing well. Generalized edema around the hand, fingers, and wrist continues to improve, markedly improved from preoperatively. Results & Data ([facility]) Vital Signs (Past 12 Hours) Vital Signs Temp Pulse Resp BP Pulse Ox 10/07/21 07:50 36.6 C 63 16 153/76 H 93 10/06/21 23:46 36.7 C 68 20 130/74 96 Laboratory Results Culture still pending, no growth to date.
--- NOTE | 2021-10-07 13:12 | Hospitalist Progress Note ---
Date of Service October 07, 2021 Assessment & Plan (1) Abscess of wrist: Plan: -With WBC 24, elevated procalcitonin, ESR, CRP. -Failed treatment as outpatient with prednisone and Keflex, d/c these. -Continue Vancomycin and Zosyn for now. Blood cultures - negative @ 48 hours. Surgical gram stain negative but cultures still pending. -prn pain medications. -Appreciate orthopedic management s/p Right Hand Irrigation and Debridement of complex dorsal abscess 10/05 (2) Lupus: Plan: -Stable. -Continue hydroxychloroquine. -D/C pimecrolimus and betamethasone cream for now. (3) HTN (hypertension): Plan: -Continue amlodipine, continue to monitor pressure, manage pain. (4) Hyperuricemia: Plan: -On outpatient labs, patient is currently on allopurinol for prevention of gout attacks. -Do not suspect this is the cause of patient's wrist pain. -Continue allopurinol 100 mg daily. Plan: VTE Prophylaxis - Lovenox 40mg SQ daily Diet - heart healthy Disposition - continue on med/surg Admission and Anticipated Discharge Date Admission Date: October 05, 2021 Subjective Continue to improve finger movements. No fever or chills. Drains removed by orthopedics. Review of Systems Review of Systems: All systems reviewed & are unremarkable except as noted in Subjective Physical Exam Constitutional: WD/WN, vitals as above Musculoskeletal: Able to get second finger to thumb. Surgical dressing not removed. No erythema outside of dressing. Sensation intact Neurologic: awake Psychiatric: A+Ox3, euthymic affect Results & Data Results & Data ([facility]) Vital Signs (Past 12 Hours) Vital Signs Temp Pulse Resp BP Pulse Ox 10/07/21 07:50 36.6 C 63 16 153/76 H 93 PG Care Time/CCT Total # of Minutes Spent Total Time Spent with Patient: Total time spent is greater than 50% in coordination of care (as documented) at patient's floor/unit and/or counseling patient: Coding Level of Care Code 02994 Subseq Hosp Care Lvl 2 Diagnoses Abscess of wrist L02.419 Lupus M32.9 HTN (hypertension) I10 Hyperuricemia E79.0
[2021-10-07] MEDS: MoRPHine SULFATE 2 MG/ML CARP IV PRN (20:08)
[2021-10-07] MEDS: PANTOprazole 40 MG TAB PO SCH (20:14)
[2021-10-07] MEDS: MONTELUKAST SODIUM 10 MG TABLET PO SCH (20:14)
[2021-10-07] MEDS: ESCITALOPRAM OXALATE 20 MG TAB PO SCH (20:14)
[2021-10-07] MEDS: ENOXAPARIN INJ 40 MG/0.4 ML SYR SQ SCH (20:14)
[2021-10-08] MEDS: VANCOMYCIN HCL 1,000 MG in SODIUM CHLORIDE 0.9% 250 ML IV SCH ×3 (00:16→14:14)
[2021-10-08] MEDS: PIPERACILLIN/TAZOBACTAM 3.375 GM in DEXTROSE 5% 100 ML IV SCH ×2 (04:02→11:41)
[2021-10-08] MEDS: KETOROLAC TROMETHAMINE 15 MG/ML VIAL IV PRN (04:05)
[2021-10-08] MEDS: FAMOTIDINE 20 MG TAB PO SCH (05:58)
[2021-10-08] MEDS ORDERED: VANCOMYCIN TROUGH ONE (07:30)
[2021-10-08 08:09] LABS: Creatinine Clr Calc Pharmacy 78.6 ml/min; Est GFR (Non-African American) 80.2 ml/min
[2021-10-08] MEDS: ASPIRIN 81 MG ECTAB PO SCH (08:27)
[2021-10-08] MEDS: ASCORBIC ACID 500 MG TAB PO SCH (08:27)
[2021-10-08] MEDS: CALCIUM 600MG + VIT D 400 IU TAB PO SCH (08:28)
[2021-10-08] MEDS: allopurinoL 100 MG TAB PO SCH (08:28)
[2021-10-08] MEDS: VITAMIN B COMPLEX TAB PO SCH (08:28)
[2021-10-08] MEDS: LORATADINE 10 MG TAB PO SCH (08:28)
[2021-10-08] MEDS: CHOLECALCIFEROL 1,000 UNITS 25 MCG TAB PO SCH (08:28)
[2021-10-08] MEDS: HYDROXYCHLOROQUINE SULFATE 200 MG TAB PO SCH (08:29)
[2021-10-08] MEDS: amLODIPine BESYLATE 5 MG TAB PO SCH (08:29)
[2021-10-08 09:50] LABS: Basophils # (auto) 0.04 K/uL (0-0.2); Basophils % (auto) 0.3 %; Eosinophils # (auto) 0.43 K/uL (0-0.5); Eosinophils % (auto) 2.7 %; Hematocrit (blood only) 35.2 % (37-47); Hemoglobin 11.9 g/dL (12.0-16.0); Immature Granulocytes # (auto) 0.22 K/uL (0.00-0.02); Immature Granulocytes % (auto) 1.4 %; Lymphocytes # (auto) 3.62 K/uL (1.2-3.4); Lymphocytes % (auto) 22.8 %; Mean Corpuscular Hemoglobin 30.4 pg (25-34); Mean Corpuscular Hgb Conc 33.8 g/dL (32-36); Mean Platelet Volume 9.6 fL (7.4-10.4); Monocytes # (auto) 0.76 K/uL (0.11-0.59); Monocytes % (auto) 4.8 %; Platelet Count 451 K/uL (130-400); RDW Coefficient of Variation 15.1 % (11.5-14.5); RDW Standard Deviation 49.8 fL (36.4-46.3); Red Blood Count 3.91 M/uL (4.2-5.4); White Blood Count 15.87 K/uL (4.8-10.8)
--- NOTE | 2021-10-08 13:00 | Discharge Summary ---
Date of Service October 08, 2021 Admission HPI Per Admitting Provider Patient is a 61-year-old female with PMH of hypertension, lupus, GERD, and depression who presents today with worsening wrist swelling since Friday, 09/30. Patient states Friday afternoon, she noticed her wrist was becoming red and appeared swollen. She went to an outpatient urgent care center who told her this may be gout, prescribed her prednisone 50 mg daily. Despite prednisone, as well as aspirin for pain management, the swelling increased and the redness started to extend up to her elbow. She saw her PCP on Friday, who tapered the prednisone and also put her on a 3-day course of Keflex for presumed cellulitis. Again, despite this it has progressed. She is unsure how this started, denies any new recent medications, no recent injuries, no animal bites, no puncture wounds. States she does have lupus, commonly gets rashes on her arms from her lupus as well as frequently having her hands in water. She usually puts betamethasone cream on it, which she did this time without alleviation. Due to swelling, she does have difficulty with range of motion at her right wrist and fingers, she is able to move her elbow in flexion extension with some pain. She has begun to develop some numbness and tingling in her first 2 fingers on the right hand. She is otherwise without complaints, denies fever/chills, myalgias, fatigue, chest pain, palpitations, shortness of breath, cough, rash or edema elsewhere. In ED, patient is hypertensive 165/77, otherwise vital signs stable and within normal limits. No fever. Labs remarkable for WBC 24.8, CRP 15.89, ESR 111, procalcitonin 0.7. K+ 3.4, glucose 143, UA with 1+ leuk estrase, patient WBCs, 5-10 RBCs. All other labs unremarkable. Hand/forearm CT showed severe cellulitis throughout the hand, greatest dorsally with significant soft tissue edema and fl uid, cellulitis of the ulnar sided soft tissues of the forearm. There is a multiloculated and peripherally enhancing fluid collection along the dorsal aspect of the wrist and hand as detailed above. This likely represents abscess as clinically suspected. Principal Diagnosis Right dorsal wrist abscess Cellulitis Discharge Exam Constitutional WD/WN, vitals as above Eyes + anicteric sclerae; normal pupil size ENMT external ear and nose normal, oropharynx normal Respiratory normal respiratory effort, lungs clear to auscultation Cardiovascular RRR, no murmur, no edema Gastrointestinal (Abdomen) Percussion/Palpation: abdomen soft; abdomen nontender Skin No erythema outside surgical dressing, finger movements similar to yesterday Neurologic awake Psychiatric A+Ox3, euthymic affect Discharge Data Allergies Allergy/AdvReac Type Severity Reaction Status Date / Time No Known Allergies Allergy Unknown Verified 10/04/21 14:48 Consultations 10/04/21 15:30 Consult Orthopedic Surgery Routine 10/04/21 15:32 ED Decision to Admit Stat Procedures Performed Operation Date: 10/05/21 11:45 Actual Procedures p Right Hand Irrigation and Debridement of Small Dorsal Abscess (Right) - Huan Pina M.D. Operation Date: 10/06/21 09:30 <No data on this case meets the specified criteria> Ordered Studies 10/04/21 12:29 CT forearm RT w con Stat CT hand RT w con Stat IMPRESSION: 1. No acute bony abnormality is identified involving the right forearm, wrist, or hand. 2. There is evidence of cellulitis of the ulnar sided soft tissues of the forearm. 3. More severe cellulitis is seen throughout the hand, greatest dorsally with significant soft tissue edema and fluid. 4. There is a multiloculated and peripherally enhancing fluid collection along the dorsal aspect of the wrist and hand as detailed above. This likely represents abscess as clinically suspected. 5. No soft tissue gas is identified. 10/04/21 18:16 MR hand RT wo con Routine IMPRESSION: Diffuse soft tissue swelling is seen compatible with cellulitis without evidence of underlying osteomyelitis. Possible abscesses are noted on the dorsal surface at the level of the carpal row. If further evaluation is desired, ultrasound can be performed. Hospital Course (1) Abscess of wrist: Celeste Harvey is a 61 year old female admitted to [facility] from October 04 - 2021 due to right hand swelling. She was diagnosed with right hand abscess and cellulitis based on history, exam and imaging findings. Prednisone was discontinued. She was treated with vancomycin and Zosyn during her inpatient stay. She underwent incision and drainage of abscesses and pus was found on October [address] Pina which significant helped with the swelling. White blood count and inflammatory markers and finger movement improving on discharge. Blood and surgical cultures are negative to date. She was transitioned to Augmentin and doxycycline on discharge for a further 7 days. (2) Lupus: (3) HTN (hypertension): (4) Hyperuricemia: (5) Immunosuppressed status: Total Time Total Time Spent Total Time Spent (In Minutes): 40 Discharge Plan Discharge Items Patient Disposition: Home - Self-Care Reason For Visit: RIGHT DORSAL WRIST ABSCESS Discharge Diagnosis: Right dorsal wrist abscess Cellulitis Activity: Resume your previous activity Activity Comment: Follow up with physical therapy and orthopedics Non-emergency contact: Primary Care Provider Call non-emergency contact if: you have any medication questions and your symptoms worsen Follow-up/Referrals: Huan Pina M.D. [Physician] - (10-14 day follow up right hand abscess) Carina Ross PA-C [Primary Care Provider] - Diet: Heart Healthy Edward Attending Provider Instructions: You were admitted to [facility] from October 04 - 2021 due to right hand swelling. You were diagnosed with right hand abscess and cellulitis. Prednisone was discontinued. You were treated with broad spectrum antibiotics with vancomycin and Zosyn during your inpatient stay. You underwent incision and drainage of abscesses and pus was found on October [address] Pina which significant helped with the swelling. Your white blood count and inflammatory markers and finger movement is now improving. Blood and surgical culture are negative to date. You will be transitioned to Augmentin and doxycycline on discharge for a further 7 days. Arth[place] has been re-prescribed for pain relief. You may also take naproxen as needed although notably this can make heartburn worse. Please follow up with [facility] physical therapy and orthopedics. Edward [employer] Provider Instructions: Orthopedic instructions: - Continue with aggressive range of motion, elevation, ice, and edema control on her right hand. Pending Studies at Discharge: No Stand-Alone Forms: My [facility], Opioid Pain Management, Smoking Cessation Medications and DC Order Prescriptions: New hydrocodone-acetaminophen 5-325 mg tablet 1 tab PO Q4H PRN (Reason: pain) Qty: 14 RF: 0 Continued multivitamin Tablet 1 tab PO QAM RF: 0 echinacea 380 mg Capsule 2 cap PO QAM RF: 0 Vitamin C 1,000 mg Tablet Extended Release 3,000 mg PO QAM RF: 0 pimecrolimus 1 % cream 1 applic topical DIRECTED RF: 0 aspirin [Aspirin Low Dose] 81 mg Tablet,Delayed Release (Dr/Ec) 81 mg PO QAM RF: 0 flaxseed oil 1,000 mg Capsule 1,000 mg PO BID RF: 0 betamethasone, augmented 0.05 % gel 1 applic topical BID PRN (Reason: lupus) RF: 0 montelukast 10 mg tablet 10 mg PO HS RF: 0 hydroxychloroquine 200 mg tablet 200 mg PO BID RF: 0 Acidophilus Capsule 1 cap PO QAM RF: 0 cholecalciferol (vitamin D3) [Vitamin D3] 1,000 unit Capsule 2,000 unit PO QAM RF: 0 omega [id number]-[id number]-fish oil [Fish Oil] 1,000 mg (120 mg-180 mg) Capsule 2 cap PO QAM RF: 0 Caltrate 600 plus D 600 mg (1,500 mg)-800 unit Tablet,Chewable 2 tab PO QAM RF: 0 amlodipine 5 mg tablet 5 mg PO QAM RF: 0 allopurinol 100 mg tablet 100 mg PO QAM RF: 0 famotidine 20 mg tablet 20 mg PO DAILYBB RF: 0 vitamin B complex Tablet 1 tab PO QAM RF: 0 loratadine 10 mg Tablet 10 mg PO QAM RF: 0 escitalopram oxalate 20 mg tablet 20 mg PO HS RF: 0 Discontinued prednisone 10 mg tablet 10 mg PO .TAPER DOSE RF: 0 hydrocodone-acetaminophen 5-325 mg tablet 1 tab PO Q4H PRN (Reason: Pain) RF: 0 cephalexin 500 mg capsule 500 mg PO TID RF: 0 Discharge Orders: Discharge Order (Routine); Ordered 10/08/21 Ordered By: Juan Alberto Davalos Admission Data Admit Date/Time: 10/05/21 09:41 Attending Provider: Juan Alberto Davalos Admit Provider: Juan Alberto Davalos Primary Care Provider: Carina Ross Other Providers: Devonte Zuñiga Jonathan M. Other Interventions: Discharge Summary Assessment (RN) Last Done: 10/08/21 14:25 Coding Level of Care Code D/C DAY MANAGEMENT >30 MINS Diagnoses Abscess of wrist L02.419 Lupus M32.9 HTN (hypertension) I10 Hyperuricemia E79.0 Immunosuppressed status D84.9
--- NOTE | 2021-10-08 16:47 | Orthopedic Progress Note ---
Date of Service October 08, 2021 Assessment & Plan (1) Abscess of wrist: Plan: Postoperative day #3 status post right hand and wrist irrigation debridement of dorsal abscess. -Generalized cellulitis and edema continues to improve with IV antibiotics. -Continue with aggressive range of motion, elevation, ice, and edema control on her right hand. -We will continue to follow to ensure that she continues to improve. -Follow-up with Dr. Pina in orthopedic surgery clinic 10 to 14 days after surgery. Please call [facility] at [phone] to make an appointment. We will also get her set up with outpatient hand therapy to work on continued range of motion of her hand and fingers. Daily dressing changes. Admission and Anticipated Discharge Date Admission Date: October 05, 2021 Subjective Patient is seen and examined in the room. She is dressed and nurse is reviewing her d/c paperwork as she is being discharged today. Has some mildly increased swelling into her fingers today, states she feels she overdid things a little. Review of Systems Review of Systems: All systems reviewed & are unremarkable except as noted in Subjective Physical Exam Physical Exam: Right hand dressing is c/d/i. Fingers mobile, motion is not progressed from yesterday. Mild increase in swelling compared to yesterday. Improved erythema. Dressing is c/d/i. Constitutional: WD/WN, vitals as above Results & Data ([facility]) Vital Signs (Past 12 Hours) Vital Signs Temp Pulse Pulse Resp BP Pulse Ox 10/08/21 15:46 36.9 C 74 16 150/66 H 95 10/08/21 14:25 36.9 C 62 73 18 148/68 H 96 10/08/21 07:31 36.9 C 62 18 148/68 H 96
== END 2021-10-08 16:44 | disposition home or self-care (01) | DRG 580 ==
LOC: 3E 11:48 → ED 11:48 → 3E 16:54
DX: M32.9 Systemic lupus erythematosus, unspecified; Z79.52 Long term (current) use of systemic steroids; L02.511 Cutaneous abscess of right hand; L03.113 Cellulitis of right upper limb; Z79.82 Long term (current) use of aspirin; M10.9 Gout, unspecified; F32.A Depression, unspecified; D84.9 Immunodeficiency, unspecified; Z85.3 Personal history of malignant neoplasm of breast; E79.0 Hyperuricemia without signs of inflammatory arthritis and tophaceous disease; K21.9 Gastro-esophageal reflux disease without esophagitis; I10 Essential (primary) hypertension